=== PATIENT | male | born 2000 ===

== ENCOUNTER 2022-04-25 17:37 | Emergency (ER) | payer OTHER, SELFPAY ==
[2022-04-25 17:46] VITALS: BP 124/68; BP 127/64; PULSE 103; PULSE 90; RESP 18; TEMP 36.3; O2SAT 100; BMI 24.6
[2022-04-25 17:51] VITALS: BP 127/64; PULSE 90; RESP 18; TEMP 36.3; O2SAT 100
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
--- NOTE | 2022-04-25 19:14 | MHC.CARE ---
CARE team received consult, Luther declined recovery resources or detox services. He was restless and reports he needs to discharged to make it to bus station to get home as buses stop running at 8 PM. Pt to be discharged per RN.
== END 2022-04-25 19:22 | disposition home or self-care (01) ==
PROVIDERS: Emergency Provider Internal Medicine
DX: T40.1X1A Poisoning by heroin, accidental (unintentional), initial encounter (principal); R40.4 Transient alteration of awareness; Y92.511 Restaurant or cafe as the place of occurrence of the external cause; F17.200 Nicotine dependence, unspecified, uncomplicated
CPT/HCPCS: 99283; 99284

== ENCOUNTER 2022-05-20 20:20 | Inpatient (IN) | payer OTHER, SELFPAY ==
--- NOTE | 2022-05-20 22:18 | PC.NURSE ---
Pt was admitted on CV to M3 @2030 from [facility]. Signed CV. COVID-negative. History obtained from medical record as pt wanted to sleep. Per record, pt self presented to [facility] with increased depression and SI, thinking about jumping off a bridge; reckless behavior including burning self with cigarettes; medication nonadherence x mos. and increased substance use. ALLERGIES: NKA. Legal status: [place] No COVID ?Negative UTOX: VINH, FYL, THC Mood: Agitated; pt wanted to sleep and did not participate in assessment. Substance use: Polysubstance use, including cocaine, opiates, THC, alcohol.? MedHx: EKG sinus bradycardia. Cigarette mcnamara L hand; smoker; hx gerd; hx heart pain.? PsycheHx: F32.9 Unspecified depressive d-o. F11.20 Opioid use d-o, moderate. F79 Unspecified intellectual d-o. F14-20 Cocaine use d-o. VS at admission.? Goal: Pending
[2022-05-21 08:50] VITALS: BP 123/65; PULSE 64; RESP 18; TEMP 35.8; O2SAT 96
[2022-05-21 09:33] LABS: Alanine Aminotransferase 16 U/L (0-40); Albumin Level 4.3 g/dL (3.5-5.0); Alkaline Phosphatase 63 U/L (39-117); Anion Gap 13 (12-20); Aspartate Amino Transferase 18 U/L (5-37); Bilirubin Total 0.3 mg/dL (0.0-1.0); Blood Urea Nitrogen 11 mg/dL (9-16); Calcium 9.3 mg/dL (8.4-10.2); Carbon Dioxide 27 mmol/L (22-29); Chloride 104 mmol/L (96-108); Cholesterol 167 mg/dL; Estimated Glomerular Filt Rate > 60; Glucose Fasting 92 mg/dL (60-99); HDL Cholesterol 47 mg/dL; LDL Cholesterol Calculated 101 mg/dl; Potassium 4.5 mmol/L (3.3-5.1); Sodium 139 mmol/L (135-145); Triglycerides 98 mg/dL
[2022-05-21] MEDS: hydrOXYzine HCL 25 MG TABLET PO (12:38)
--- NOTE | 2022-05-21 12:43 | HO.PM.IMCN ---
History of Present Illness Data of Consult Service Date: 05/21/22 Requesting physician: Dallas Burgess Primary Care Provider: Nonstaff Physician HPI Reason for consult: medical H&P 21 year old male with history of depression with SI and polysubstance abuse including cocaine and IV heroin (last use 2 days ago) admitted to psychiatry with consult placed for medical H&P. He reports feeling quite aggitated with body aches. No fevers, chills, cp, palpitations, sob, abd pain, n/v, headaches. He smoked 1ppd cigarettes. Reports was previously on methadone months ago but started using again once this was discontinued. Looking to resume methadone. Review of Systems Review of Systems: General: No fevers, malaise, unintentional weight loss Cardiovascular: No chest pain, palpitations, or leg edema Respiratory: No shortness of breath, wheezing, cough GI: No abdominal pain, nausea, vomiting, diarrhea, constipation, melena, hematochezia Neuro: No headaches, weakness, paresthesias MSK: +myalgia Psych: +depression, +si, +polysubstance abuse, +aggitation Skin: No rashes or lesions PMFSH Medical History Cocaine abuse Depression Heroin abuse Pertinent family history: Pt aggitated from w/d, trying to leave exam room, not providing addl history Social History Household Members: None Housing: Homeless Alcohol intake: never Patient Tobacco Use Status: Current everyday Tobacco user Tobacco use type: Cigarette Smoked in Last 30 Days: Yes Frequency of e-Cigarette/Vaping Use: Medical record reports 1/2 to 1 pack a day cigarette smoker. Use of substances other than those prescribed or required for medical reasons: Yes Substance Use Type: Crack/Cocaine, Marijuana and Opiates Substance Use Frequency: Chronic Longstanding Last Used Substance: Days (ago) Last Used Substance Other:: VINH, FYL, THC Currently Displaying Signs/Symptoms of Drug Intoxication Withdrawal: No Any prior treatment program specific to substance use: Yes Do you feel safe in your current relationship?: No Current Relationship Advance Directives: No (Unknown) Do you have thoughts of harming others: None Do you have a plan to hurt others: No Plan Nutrition Risks: Dental problems Poor oral hygiene: Yes service: No Sexual orientation: Straight/Heterosexual Meds Allergies Allergy/AdvReac Type Severity Reaction Status Date / Time No Known Allergies Allergy Verified 05/20/22 20:54 Active Medications: Current Medications Acetaminophen (Acetaminophen 325 Mg Tablet) 650 mg PO Q6H PRN PRN Reason: Headache/Pain Mild Scale (1-3) Al Hydroxide/Mg Hydroxide (Magnesium Hydrox/Alum Hydrox 30 Ml Oral.Susp) 30 ml PO Q6H PRN PRN Reason: Heartburn/Nausea Hydroxyzine HCl (Hydroxyzine Hcl 25 Mg Tablet) 25 mg PO Q6H PRN PRN Reason: Anxiety Last Admin: 05/21/22 12:38 Dose: 25 mg Magnesium Hydroxide (Milk Of Magnesia 30 Ml Oral.Susp) 30 ml PO DAILY PRN PRN Reason: Constipation Trazodone HCl (Trazodone Hcl 50 Mg Tablet) 50 mg PO BEDTIME PRN PRN Reason: Insomnia Physical Exam Vital Signs and Narrative: Constitutional - Awake and Alert, Pacing in room, aggitated appearing Eyes - PERRLA, EOMI Cardiovascular - S1S2, RRR, No edema Respiratory - Normal lung expansion, Normal respiratory effort, No respiratory distress, CTA bilaterally Gastrointestinal - NT / ND; +BS; No rebound or guarding Extremities - no calf tenderness bilaterally, no swelling Skin - Warm/Dry Neurological - Alert & oriented x3, pupillary dilitation, CN II-XII otherwise intact Results Labs CBC and Chem 7: 05/21/22 08:09 Labs: Laboratory Results - last 24 hr 05/21/22 08:09 Anion Gap 13 Estim Creat Clear Calc TNP Estimated GFR > 60 Fasting Glucose 92 Calcium 9.3 Total Bilirubin 0.3 AST 18 ALT 16 Alkaline Phosphatase 63 Total Protein 7.0 Albumin 4.3 Triglycerides 98 Cholesterol 167 LDL Cholesterol, Calc 101 HDL Cholesterol 47 Assessment and Plan (1) Depression: Status: Acute (2) Heroin abuse: Status: Acute (3) Cocaine abuse: Status: Acute Plan 21 year old male with history of depression with SI and polysubstance abuse including cocaine and IV heroin (last use 2 days ago) admitted to psychiatry with consult placed for medical H&P. 1-Depression -Plan per psychiatry -Reviewed notes from [facility] ED including crisis eval and provider note. BMP, CBC, EKG reviewed without significant abnormality 2-Polysubstance abuse including cocaine and heroin in active withdrawal -UTox from [facility] pos cocaine and heroin 05/19 -Withdrawal symptoms including dilated pupils, myalgia, and aggitation -Monitor vitals -Recommend addiction medicine consult for possible methadone initiation -Plan per psychiatry Thank you for allowing me to participate in this consult. Signing off at this time. Please do not hesitate to call for further questions.
--- NOTE | 2022-05-21 13:15 | PC.NURSE ---
Late entry: 0900 Patient reporting symptom of withdrawal including: aching, chills. Denies n/v, reporting anxiety. Message relayed to team. Patient given hydroxyzine, Dr. Almonte notified of continued symptoms, patient requesting to start on Methadone ? Addictions consult.
[2022-05-21] MEDS: methADONE HCl 20 MG/2 ML ORAL.CONC 30 MG PO (14:05)
--- NOTE | 2022-05-21 16:17 | P.EN_ITS ---
Event Note Date of Service: 05/21/22 Event Note: Addiction consult This customs entry writer attempted to meet with patient. Patient laying in bed, eyes closed but responded sleeping! This customs entry writer advised patient regarding reason for visit, patient replied, thanks, yeah. come back tomorrow. I feel better now And rolled over
--- NOTE | 2022-05-21 16:17 | PM.EVENT ---
Event Note Date of Service: 05/21/22 Event Note: Addiction consult This sign writer letterer or painter attempted to meet with patient. Patient laying in bed, eyes closed but responded sleeping! This sign writer letterer or painter advised patient regarding reason for visit, patient replied, thanks, yeah. come back tomorrow. I feel better now And rolled over
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
--- NOTE | 2022-05-21 17:58 | PC.NURSE ---
Patient talking to peer loudly in common area. States he only said he was suicidal to get off the streets . Engaged in drug talk in milieu, he was trippin his fucking balls off . Using expletives, vulgarities. Redirected out of common area, minimally receptive stating I was not glamorizing drug talk .
[2022-05-21] MEDS: Nicotine Polacrilex 2 MG GUM 4 MG BUCCAL (19:19)
[2022-05-21] MEDS: Ibuprofen 800 MG TABLET PO (22:09)
[2022-05-21 22:10] VITALS: BP 137/63; PULSE 55; RESP 16; TEMP 36.8; O2SAT 98
[2022-05-21] MEDS: Acetaminophen 325 MG TABLET 650 MG PO (22:10)
[2022-05-22 08:20] VITALS: BP 127/58; PULSE 60; RESP 20; TEMP 36.6; O2SAT 97
[2022-05-22] MEDS: Nicotine Polacrilex 2 MG GUM 4 MG BUCCAL ×3 (10:50→22:07)
[2022-05-22] MEDS: methADONE HCl 20 MG/2 ML ORAL.CONC 30 MG PO (10:50)
--- NOTE | 2022-05-22 10:55 | PC.NURSE ---
Pt declined flu and nicotine patch.
--- NOTE | 2022-05-22 12:38 | HO.PSYCHPN ---
Subjective Subjective Date of Service: 05/22/22 Reason For Visit: Unspecified Depressive D/O, opiod use d/o moderate Interim History: calm, cooperative. appearing happier than yesterday. MD observes, you look better than yesterday, to which he replies, i'm always looking good (while looking at his reflection in the plexiglass TV cover). states he is not sure what his plan is. not really interested in rehab. ultimately says he is interested in referral to methadone clinic in [place]. planning to be maintained on 30 mg daily here and to D/C on wednesday to F/U at clinic on wednesday morning. per staff, 3-day submitted. watching TV, pleasant, social. no SI. Mental Status Exam Mental Status Exam Narrative: cooperative with interview. PMA of pacing about the interview room. adequately dressed and groomed in street clothes. speech nml rate and amount. nml loudness, latency. thoughts linear and logical. affect full range, normo-intense, non-labile. mood euthymic. no SI/HI/AVH expressed. Diagnostics Vital Signs (24Hr): Vital Signs - 24 hr 05/21/22 22:10 05/22/22 08:20 Temperature 98.2 F 97.9 F Pulse Rate 55 60 Respiratory Rate 16 20 Blood Pressure 137/63 127/58 L Pulse Oximetry 98 97 Oxygen Delivery Method Room Air Room Air Labs Results: 05/21/22 08:09 Labs: Laboratory Results - last 48 hr 05/21/22 08:09 Sodium 139 Potassium 4.5 Chloride 104 Carbon Dioxide 27 Anion Gap 13 BUN 11 Creatinine 0.83 Estim Creat Clear Calc TNP Estimated GFR > 60 Fasting Glucose 92 Calcium 9.3 Total Bilirubin 0.3 AST 18 ALT 16 Alkaline Phosphatase 63 Total Protein 7.0 Albumin 4.3 Triglycerides 98 Cholesterol 167 LDL Cholesterol, Calc 101 HDL Cholesterol 47 Medications Medications Current Medications Acetaminophen (Acetaminophen 325 Mg Tablet) 650 mg PO Q6H PRN PRN Reason: Headache/Pain Mild Scale (1-3) Last Admin: 05/21/22 22:10 Dose: 650 mg Al Hydroxide/Mg Hydroxide (Magnesium Hydrox/Alum Hydrox 30 Ml Oral.Susp) 30 ml PO Q6H PRN PRN Reason: Heartburn/Nausea Clonidine HCl (Clonidine Hcl 0.1 Mg Tablet) 0.1 mg PO Q2H PRN; Protocol PRN Reason: signs of opioid withdrawal Dicyclomine HCl (Dicyclomine Hcl 10 Mg Capsule) 10 mg PO QIDACHS PRN PRN Reason: GI Spasm Hydroxyzine HCl (Hydroxyzine Hcl 25 Mg Tablet) 25 mg PO Q6H PRN PRN Reason: Anxiety Last Admin: 05/21/22 12:38 Dose: 25 mg Ibuprofen (Ibuprofen 800 Mg Tablet) 800 mg PO Q6H PRN PRN Reason: Pain, Moderate (Pain Scale 4-6 Last Admin: 05/21/22 22:09 Dose: 800 mg Magnesium Hydroxide (Milk Of Magnesia 30 Ml Oral.Susp) 30 ml PO DAILY PRN PRN Reason: Constipation Methadone HCl (Methadone Hcl 20 Mg/2 Ml Oral.Conc) 30 mg PO DAILY TINA Nicotine Polacrilex (Nicotine Polacrilex 2 Mg Gum) 4 mg BUCCAL Q1H PRN PRN Reason: Nicotine Cravings Last Admin: 05/22/22 10:50 Dose: 4 mg Trazodone HCl (Trazodone Hcl 50 Mg Tablet) 50 mg PO BEDTIME PRN PRN Reason: Insomnia Allergies Allergies Allergy/AdvReac Type Severity Reaction Status Date / Time No Known Allergies Allergy Verified 05/20/22 20:54 Assessment & Plan Assessment & Plan (1) Depression: Status: Acute Code(s): F32.A - Depression, unspecified (2) Heroin abuse: Status: Acute Code(s): F11.10 - Opioid abuse, uncomplicated (3) Cocaine abuse: Status: Acute Code(s): F14.10 - Cocaine abuse, uncomplicated (4) Autism: Status: Acute Code(s): F84.0 - Autistic disorder (5) Malingering: Status: Acute Code(s): Z76.5 - Malingerer [conscious simulation] Plan 05/21: methadone 30 mg at admission and comfort meds for withdrawal Sx. addiction consult - pt states he would like to be on methadone maintenance. continue assessment once pt is more comfortable and better able to collaborate. 05/22: states he is not interested in rehab. everything's fine for the most part. he is interested in methadone maintenance and will be Rx'ed 30 mg daily for now. 3-day in, up next wednesday. plan to DC to snf in [place] to F/U at methadone clinic in [place] on . I spent ___20___ minutes with the patient and/or on the patient floor today, greater than?50% of which was spent counseling/coordinating care. Reason for contiued inpatient stay Substantial Risk for: rapid decompensation
--- NOTE | 2022-05-22 16:52 | HO.ADDICT_ITS ---
History of Present Illness Date of Service: 05/22/2022 Chief Complaint: Unspecified Depressive D/O, opiod use d/o moderate Reason for Consult: OUD--methadone start Requesting physician: [facility] Narrative: Patient is a 21 year old male currently admitted to behavioral health unit. Seen on unit, awake, alert and engaged in interview. Patient very talkative and at times rambling and requiring redirection to answer questions. Walking around room and looking into plexiglass. Somewhat juvenile presentation (manner of speaking, details of stories shared). Rpeorts he had been in a sober home for 6 months--prior to that had been in [address] [facility] for almost 2 months Came home to clear my head and had a recurrence of use with crack cocaine and shortly after that heroin. He expressed numerous times that he was not planning on relapsing when he came home. Substance use history \ -started using at age 16 --heroin [place] then at age 18 progressed to IV. -cocaine use as well -reports approx 4 overdoses requiring narcan. Has been in treatment with [facility]. Would liek to return there. States his dose was 40-50mg. Today patient received 30mg and did not appear sedated at all. Somewhat diaphoretic. Reporting restless legs in the evening. Requesting dose increase. Past Psychiatric History: reportedly h/o DMH and CHD services/involvement. multiple psych hosps. no h/o SA or SIB prior to the present presentation. Review of Systems Constitutional: Reports as per HPI Diagnostics Vital Signs (24Hr): Vital Signs - 24 hr 05/21/22 22:10 05/22/22 08:20 Temperature 98.2 F 97.9 F Pulse Rate 55 60 Respiratory Rate 16 20 Blood Pressure 137/63 127/58 L Pulse Oximetry 98 97 Oxygen Delivery Method Room Air Room Air Labs Results: 05/21/22 08:09 Labs: Laboratory Results - last 48 hr 05/21/22 08:09 Sodium 139 Potassium 4.5 Chloride 104 Carbon Dioxide 27 Anion Gap 13 BUN 11 Creatinine 0.83 Estim Creat Clear Calc TNP Estimated GFR > 60 Fasting Glucose 92 Calcium 9.3 Total Bilirubin 0.3 AST 18 ALT 16 Alkaline Phosphatase 63 Total Protein 7.0 Albumin 4.3 Triglycerides 98 Cholesterol 167 LDL Cholesterol, Calc 101 HDL Cholesterol 47 Mental Status Exam Mental Status Exam Patient Appearance: Appropriate (blanket wrapped around him ) Patient Orientation: Person, Place, Time and Situation Patient Behavior: Appropriate and Talkative Mood Description: Anxious Affect Description: Anxious Ability to Follow Directions: Good Speech Pattern: Clear, Excessive and Animated Thought Process: Rumination (friend that passed ) Thought Content: positive for [place] and positive for Tangential Judgement: Fair (limited insight) Medications Medications Current Medications Acetaminophen (Acetaminophen 325 Mg Tablet) 650 mg PO Q6H PRN PRN Reason: Headache/Pain Mild Scale (1-3) Last Admin: 05/21/22 22:10 Dose: 650 mg Al Hydroxide/Mg Hydroxide (Magnesium Hydrox/Alum Hydrox 30 Ml Oral.Susp) 30 ml PO Q6H PRN PRN Reason: Heartburn/Nausea Clonidine HCl (Clonidine Hcl 0.1 Mg Tablet) 0.1 mg PO Q2H PRN; Protocol PRN Reason: signs of opioid withdrawal Dicyclomine HCl (Dicyclomine Hcl 10 Mg Capsule) 10 mg PO QIDACHS PRN PRN Reason: GI Spasm Hydroxyzine HCl (Hydroxyzine Hcl 25 Mg Tablet) 25 mg PO Q6H PRN PRN Reason: Anxiety Last Admin: 05/21/22 12:38 Dose: 25 mg Ibuprofen (Ibuprofen 800 Mg Tablet) 800 mg PO Q6H PRN PRN Reason: Pain, Moderate (Pain Scale 4-6 Last Admin: 05/21/22 22:09 Dose: 800 mg Magnesium Hydroxide (Milk Of Magnesia 30 Ml Oral.Susp) 30 ml PO DAILY PRN PRN Reason: Constipation Methadone HCl (Methadone Hcl 20 Mg/2 Ml Oral.Conc) 40 mg PO DAILY [facility] Nicotine Polacrilex (Nicotine Polacrilex 2 Mg Gum) 4 mg BUCCAL Q1H PRN PRN Reason: Nicotine Cravings Last Admin: 05/22/22 10:50 Dose: 4 mg Trazodone HCl (Trazodone Hcl 50 Mg Tablet) 50 mg PO BEDTIME PRN PRN Reason: Insomnia Allergies Allergies Allergy/AdvReac Type Severity Reaction Status Date / Time No Known Allergies Allergy Verified 05/20/22 20:54 Assessment & Plan Assessment & Plan (1) Opioid use disorder: Status: Acute Code(s): F11.90 - Opioid use, unspecified, uncomplicated Assessment and Plan: * methadone 40mg daily (order changed) * if patient at any time appears sedated, hold dose and notify this television script writer * discussed with SW--will place referral to [facility] for continuation of care with OTP I spent __35____ minutes with the patient and/or on the patient floor today, greater than?50% of which was spent counseling/coordinating care. [facility] Past Medical History Medical History Cocaine abuse Depression Heroin abuse Social History Social History Household Members: None Housing: Homeless Alcohol intake: never Patient Tobacco Use Status: Current everyday Tobacco user Tobacco use type: Cigarette Smoked in Last 30 Days: Yes Frequency of e-Cigarette/Vaping Use: Medical record reports 1/2 to 1 pack a day cigarette smoker. Use of substances other than those prescribed or required for medical reasons: Yes Substance Use Type: Crack/Cocaine, Marijuana and Opiates Substance Use Frequency: Chronic Longstanding Last Used Substance: Days (ago) Last Used Substance Other:: VINH, FYL, THC Currently Displaying Signs/Symptoms of Drug Intoxication Withdrawal: No Any prior treatment program specific to substance use: Yes Do you feel safe in your current relationship?: No Current Relationship Advance Directives: No (Unknown) Do you have thoughts of harming others: None Do you have a plan to hurt others: No Plan Nutrition Risks: Dental problems Poor oral hygiene: Yes service: No Sexual orientation: Straight/Heterosexual
[2022-05-22 20:58] VITALS: BP 112/53; PULSE 59; RESP 14; TEMP 36.6; O2SAT 96
[2022-05-22] MEDS: cloNIDine HCL 0.1 MG TABLET PO (22:07)
[2022-05-22 22:08] VITALS: BP 125/58; PULSE 59; RESP 16
[2022-05-22] MEDS: Melatonin 3 MG TABLET 6 MG PO (22:59)
[2022-05-23 06:00] VITALS: BP 109/52; PULSE 59; RESP 16; TEMP 36.1; O2SAT 98
[2022-05-23] MEDS: methADONE HCl 20 MG/2 ML ORAL.CONC 40 MG PO (08:46)
--- NOTE | 2022-05-23 12:31 | HO.PSYCHPN ---
Subjective Subjective Date of Service: 05/23/22 Reason For Visit: Unspecified Depressive D/O, opiod use d/o moderate Interim History: pt irritable, bothered by rules on unit saying other units are better; complaining loudly. Denies SI, HI, AVH. Says he lied to get a bed since he was homeless. However, says he has depression; zoloft helped in past. Agrees to get back on. Mental Status Exam Mental Status Exam Patient Appearance: Appropriate (blanket wrapped around him ) Patient Orientation: Person, Place, Time and Situation Patient Behavior: Appropriate and Talkative Mood Description: Anxious Affect Description: Anxious Ability to Follow Directions: Fair Speech Pattern: Clear, Excessive and Animated Hallucinations: None Delusions: Not Present Thought Process: Rumination (friend that passed ) Thought Content: positive for [place], positive for Tangential, positive for Suicidal Ideation (none) and positive for Homicidal Ideation (none) Judgement: Fair (limited insight) Judgement and Insight: impaired Diagnostics Vital Signs (24Hr): Vital Signs - 24 hr 05/22/22 20:58 05/22/22 22:08 05/23/22 06:00 Temperature 97.8 F 97.0 F Pulse Rate 59 59 59 Respiratory Rate 14 16 16 Blood Pressure 112/53 L 125/58 L 109/52 L Pulse Oximetry 96 98 Oxygen Delivery Method Room Air Room Air Labs Results: 05/21/22 08:09 Medications Medications Current Medications Acetaminophen (Acetaminophen 325 Mg Tablet) 650 mg PO Q6H PRN PRN Reason: Headache/Pain Mild Scale (1-3) Last Admin: 05/21/22 22:10 Dose: 650 mg Al Hydroxide/Mg Hydroxide (Magnesium Hydrox/Alum Hydrox 30 Ml Oral.Susp) 30 ml PO Q6H PRN PRN Reason: Heartburn/Nausea Clonidine HCl (Clonidine Hcl 0.1 Mg Tablet) 0.1 mg PO Q2H PRN; Protocol PRN Reason: signs of opioid withdrawal Last Admin: 05/22/22 22:07 Dose: 0.1 mg Dicyclomine HCl (Dicyclomine Hcl 10 Mg Capsule) 10 mg PO QIDACHS PRN PRN Reason: GI Spasm Hydroxyzine HCl (Hydroxyzine Hcl 25 Mg Tablet) 25 mg PO Q6H PRN PRN Reason: Anxiety Last Admin: 05/21/22 12:38 Dose: 25 mg Ibuprofen (Ibuprofen 800 Mg Tablet) 800 mg PO Q6H PRN PRN Reason: Pain, Moderate (Pain Scale 4-6 Last Admin: 05/21/22 22:09 Dose: 800 mg Magnesium Hydroxide (Milk Of Magnesia 30 Ml Oral.Susp) 30 ml PO DAILY PRN PRN Reason: Constipation Melatonin (Melatonin 3 Mg Tablet) 6 mg PO BEDTIME PRN PRN Reason: Insomnia Last Admin: 05/22/22 22:59 Dose: 6 mg Methadone HCl (Methadone Hcl 20 Mg/2 Ml Oral.Conc) 40 mg PO DAILY TINA Last Admin: 05/23/22 08:46 Dose: 40 mg Nicotine Polacrilex (Nicotine Polacrilex 2 Mg Gum) 4 mg BUCCAL Q1H PRN PRN Reason: Nicotine Cravings Last Admin: 05/22/22 22:07 Dose: 4 mg Trazodone HCl (Trazodone Hcl 50 Mg Tablet) 50 mg PO BEDTIME PRN PRN Reason: Insomnia Allergies Allergies Allergy/AdvReac Type Severity Reaction Status Date / Time No Known Allergies Allergy Verified 05/20/22 20:54 Assessment & Plan Assessment & Plan (1) Opioid use disorder: Status: Acute Code(s): F11.90 - Opioid use, unspecified, uncomplicated Assessment and Plan: methadone 40mg daily (order changed) if patient at any time appears sedated, hold dose and notify this law writer discussed with SW--will place referral to [facility] for continuation of care with OTP 05/23 denies SI; says depressed; Zoloft helped in past and will restart now Plan 05/23 denies SI; says depressed; Zoloft helped in past and will restart now I spent minutes with the patient and/or on the patient floor today, greater than?50% of which was spent counseling/coordinating care. Patient educated on: diagnosis and medication risk/benefits Informed Consent: understands and further education needed Reason for contiued inpatient stay Substantial Risk for: stable for discharge
[2022-05-23] MEDS: Nicotine Polacrilex 2 MG GUM 4 MG BUCCAL ×2 (14:24→22:50)
[2022-05-23 20:30] VITALS: BP 140/63; PULSE 62; RESP 16; TEMP 36.3; O2SAT 96
[2022-05-23 22:45] VITALS: BP 125/60; PULSE 58; RESP 16
[2022-05-23] MEDS: cloNIDine HCL 0.1 MG TABLET PO (22:50)
[2022-05-23] MEDS: Melatonin 3 MG TABLET 6 MG PO (22:50)
[2022-05-24 09:10] VITALS: BP 132/56; PULSE 59; RESP 18; TEMP 36.5; O2SAT 100
[2022-05-24] MEDS: Sertraline HCL 50 MG TABLET PO (09:19)
[2022-05-24] MEDS: methADONE HCl 20 MG/2 ML ORAL.CONC 40 MG PO (09:19)
[2022-05-24 18:25] VITALS: BP 118/59; PULSE 51; RESP 16; TEMP 36.4; O2SAT 97
[2022-05-24] MEDS: Nicotine Polacrilex 2 MG GUM 4 MG BUCCAL (19:32)
--- NOTE | 2022-05-24 19:34 | HO.PSYCHPN ---
Subjective Subjective Date of Service: 05/24/22 Reason For Visit: Unspecified Depressive D/O, opiod use d/o moderate Interim History: Patient said that he is feeling a little more calm. He said his depression is not so bad today and listed some of the things he is doing to distract himself from worries about his problems. He said he had no side effects from Zoloft and agrees for to be titrated. Denies SI or HI. He did share with staff that he has been mourning the of a friend. Mental Status Exam Mental Status Exam Patient Appearance: Appropriate (blanket wrapped around him ) Patient Orientation: Person, Place, Time and Situation Patient Behavior: Appropriate and Talkative Mood Description: Anxious Affect Description: Anxious Ability to Follow Directions: Fair Speech Pattern: Clear, Excessive and Animated Hallucinations: None Delusions: Not Present Thought Process: Rumination (friend that passed ) Thought Content: positive for [place], positive for Tangential, positive for Suicidal Ideation (none) and positive for Homicidal Ideation (none) Judgement: Fair (limited insight) Judgement and Insight: impaired Diagnostics Vital Signs (24Hr): Vital Signs - 24 hr 05/23/22 20:30 05/23/22 22:45 05/24/22 09:10 Temperature 97.4 F 97.7 F Pulse Rate 62 58 59 Respiratory Rate 16 16 18 Blood Pressure 140/63 H 125/60 132/56 L Pulse Oximetry 96 100 Oxygen Delivery Method Room Air Room Air 05/24/22 18:25 Temperature 97.6 F Pulse Rate 51 Respiratory Rate 16 Blood Pressure 118/59 L Pulse Oximetry 97 Oxygen Delivery Method Room Air Labs Results: 05/21/22 08:09 Medications Medications Current Medications Acetaminophen (Acetaminophen 325 Mg Tablet) 650 mg PO Q6H PRN PRN Reason: Headache/Pain Mild Scale (1-3) Last Admin: 05/21/22 22:10 Dose: 650 mg Al Hydroxide/Mg Hydroxide (Magnesium Hydrox/Alum Hydrox 30 Ml Oral.Susp) 30 ml PO Q6H PRN PRN Reason: Heartburn/Nausea Clonidine HCl (Clonidine Hcl 0.1 Mg Tablet) 0.1 mg PO Q2H PRN; Protocol PRN Reason: signs of opioid withdrawal Last Admin: 05/23/22 22:50 Dose: 0.1 mg Dicyclomine HCl (Dicyclomine Hcl 10 Mg Capsule) 10 mg PO QIDACHS PRN PRN Reason: GI Spasm Hydroxyzine HCl (Hydroxyzine Hcl 25 Mg Tablet) 25 mg PO Q6H PRN PRN Reason: Anxiety Last Admin: 05/21/22 12:38 Dose: 25 mg Ibuprofen (Ibuprofen 800 Mg Tablet) 800 mg PO Q6H PRN PRN Reason: Pain, Moderate (Pain Scale 4-6 Last Admin: 05/21/22 22:09 Dose: 800 mg Magnesium Hydroxide (Milk Of Magnesia 30 Ml Oral.Susp) 30 ml PO DAILY PRN PRN Reason: Constipation Melatonin (Melatonin 3 Mg Tablet) 6 mg PO BEDTIME PRN PRN Reason: Insomnia Last Admin: 05/23/22 22:50 Dose: 6 mg Methadone HCl (Methadone Hcl 20 Mg/2 Ml Oral.Conc) 40 mg PO DAILY [facility] Last Admin: 05/24/22 09:19 Dose: 40 mg Nicotine Polacrilex (Nicotine Polacrilex 2 Mg Gum) 4 mg BUCCAL Q1H PRN PRN Reason: Nicotine Cravings Last Admin: 05/24/22 19:32 Dose: 4 mg Sertraline HCl (Sertraline Hcl 50 Mg Tablet) 50 mg PO DAILY [facility] Last Admin: 05/24/22 09:19 Dose: 50 mg Trazodone HCl (Trazodone Hcl 50 Mg Tablet) 50 mg PO BEDTIME PRN PRN Reason: Insomnia Allergies Allergies Allergy/AdvReac Type Severity Reaction Status Date / Time No Known Allergies Allergy Verified 05/20/22 20:54 Assessment & Plan Assessment & Plan (1) Opioid use disorder: Status: Acute Code(s): F11.90 - Opioid use, unspecified, uncomplicated Assessment and Plan: methadone 40mg daily (order changed) if patient at any time appears sedated, hold dose and notify this curriculum writer discussed with SW--will place referral to [facility] for continuation of care with OTP 05/23 denies SI; says depressed; Zoloft helped in past and will restart now Plan 05/23 denies SI; says depressed; Zoloft helped in past and will restart now 05/24 patient said he is feeling a little better, a little less depressed. Still anxious about dispo however says he has been using coping skills Patient agrees to increasing Zoloft Patient looks to have symptoms similar to ADHD and curriculum writer wonders if patient would benefit from a stimulant medication; however will defer this to primary team I spent minutes with the patient and/or on the patient floor today, greater than?50% of which was spent counseling/coordinating care. Patient educated on: diagnosis, medication risk/benefits and therapeutic strategies Informed Consent: understands Reason for contiued inpatient stay Substantial Risk for: stable for discharge
[2022-05-24] MEDS: cloNIDine HCL 0.1 MG TABLET PO (22:39)
[2022-05-24] MEDS: Melatonin 3 MG TABLET 6 MG PO (22:39)
[2022-05-25 10:35] VITALS: BP 117/70; PULSE 88; RESP 16; TEMP 37.1; O2SAT 98
[2022-05-25] MEDS: methADONE HCl 20 MG/2 ML ORAL.CONC 40 MG PO (10:40)
[2022-05-25] MEDS: Sertraline HCL 25 MG TABLET 75 MG PO (10:41)
--- NOTE | 2022-05-25 10:45 | PC.NURSE ---
ll nursing documentation inthis chart from 05/25/2022 0800am through 10:30 am was completed by Hannah Garcia RN. I was loggied in in error as Sri Saldivar RN.
[2022-05-25] MEDS: Nicotine Polacrilex 2 MG GUM 4 MG BUCCAL (15:08)
--- NOTE | 2022-05-25 15:14 | P.PNPSI_ITS ---
Subjective Subjective Date of Service: 05/25/22 Reason For Visit: Unspecified Depressive D/O, opiod use d/o moderate Interim History: Patient says he is feeling more calm and staff concurs; says maybe Zoloft is starting to work but he knows it takes awhile. Denies psychiatric symptoms Mental Status Exam Mental Status Exam Patient Appearance: Appropriate (blanket wrapped around him ) Patient Orientation: Person, Place, Time and Situation Patient Behavior: Appropriate and Talkative Mood Description: Anxious Affect Description: Anxious Ability to Follow Directions: Fair Speech Pattern: Clear, Excessive and Animated Hallucinations: None Delusions: Not Present Thought Process: Rumination (friend that passed ) Thought Content: positive for [place], positive for Tangential, positive for Suicidal Ideation (none) and positive for Homicidal Ideation (none) Judgement: Fair (limited insight) Judgement and Insight: impaired Diagnostics Vital Signs (24Hr): Vital Signs - 24 hr 05/24/22 18:25 05/25/22 10:35 Temperature 97.6 F 98.7 F Pulse Rate 51 88 Respiratory Rate 16 16 Blood Pressure 118/59 L 117/70 Pulse Oximetry 97 98 Oxygen Delivery Method Room Air Room Air Labs Results: 05/21/22 08:09 Medications Medications Current Medications Acetaminophen (Acetaminophen 325 Mg Tablet) 650 mg PO Q6H PRN PRN Reason: Headache/Pain Mild Scale (1-3) Last Admin: 05/21/22 22:10 Dose: 650 mg Al Hydroxide/Mg Hydroxide (Magnesium Hydrox/Alum Hydrox 30 Ml Oral.Susp) 30 ml PO Q6H PRN PRN Reason: Heartburn/Nausea Clonidine HCl (Clonidine Hcl 0.1 Mg Tablet) 0.1 mg PO Q2H PRN; Protocol PRN Reason: signs of opioid withdrawal Last Admin: 05/24/22 22:39 Dose: 0.1 mg Dicyclomine HCl (Dicyclomine Hcl 10 Mg Capsule) 10 mg PO QIDACHS PRN PRN Reason: GI Spasm Hydroxyzine HCl (Hydroxyzine Hcl 25 Mg Tablet) 25 mg PO Q6H PRN PRN Reason: Anxiety Last Admin: 05/21/22 12:38 Dose: 25 mg Ibuprofen (Ibuprofen 800 Mg Tablet) 800 mg PO Q6H PRN PRN Reason: Pain, Moderate (Pain Scale 4-6 Last Admin: 05/21/22 22:09 Dose: 800 mg Magnesium Hydroxide (Milk Of Magnesia 30 Ml Oral.Susp) 30 ml PO DAILY PRN PRN Reason: Constipation Melatonin (Melatonin 3 Mg Tablet) 6 mg PO BEDTIME PRN PRN Reason: Insomnia Last Admin: 05/24/22 22:39 Dose: 6 mg Methadone HCl (Methadone Hcl 20 Mg/2 Ml Oral.Conc) 40 mg PO DAILY [facility] Last Admin: 05/25/22 10:40 Dose: 40 mg Nicotine Polacrilex (Nicotine Polacrilex 2 Mg Gum) 4 mg BUCCAL Q1H PRN PRN Reason: Nicotine Cravings Last Admin: 05/25/22 15:08 Dose: 4 mg Sertraline HCl (Sertraline Hcl 25 Mg Tablet) 75 mg PO DAILY [facility] Last Admin: 05/25/22 10:41 Dose: 75 mg Trazodone HCl (Trazodone Hcl 50 Mg Tablet) 50 mg PO BEDTIME PRN PRN Reason: Insomnia Allergies Allergies Allergy/AdvReac Type Severity Reaction Status Date / Time No Known Allergies Allergy Verified 05/20/22 20:54 Assessment & Plan Assessment & Plan (1) Opioid use disorder: Status: Acute Code(s): F11.90 - Opioid use, unspecified, uncomplicated Assessment and Plan: * methadone 40mg daily (order changed) * if patient at any time appears sedated, hold dose and notify this conventional mortgage underwriter * discussed with SW--will place referral to [facility] for continuation of care with OTP * 05/23 denies SI; says depressed; Zoloft helped in past and will restart now Plan 05/23 denies SI; says depressed; Zoloft helped in past and will restart now 05/24 patient said he is feeling a little better, a little less depressed. Still anxious about dispo however says he has been using coping skills Patient agrees to increasing Zoloft Patient looks to have symptoms similar to ADHD and conventional mortgage underwriter wonders if patient would benefit from a stimulant medication; however will defer this to primary team 05/25 continue Zoloft; patient has calmed somewhat I spent minutes with the patient and/or on the patient floor today, greater than?50% of which was spent counseling/coordinating care. Patient educated on: diagnosis and medication risk/benefits Reason for contiued inpatient stay Substantial Risk for: stable for discharge
[2022-05-25] MEDS: Melatonin 3 MG TABLET 6 MG PO (22:45)
[2022-05-25] MEDS: cloNIDine HCL 0.1 MG TABLET PO (22:46)
[2022-05-25 22:48] VITALS: BP 123/58; PULSE 62; RESP 18; TEMP 36.3; O2SAT 98
[2022-05-26 09:00] VITALS: BP 120/55; PULSE 66; RESP 16; TEMP 37.1; O2SAT 96
[2022-05-26] MEDS: Sertraline HCL 25 MG TABLET 75 MG PO (09:08)
[2022-05-26] MEDS: methADONE HCl 20 MG/2 ML ORAL.CONC 40 MG PO (09:08)
--- NOTE | 2022-05-26 14:49 | MHC.RECOVRN ---
T/W met w/ pt, pt alert, oriented, watching t.v. Pt states feels fine on 40mg MTD pt reports no withdrawal symptoms at this time. Provider aware.
--- NOTE | 2022-05-26 16:28 | HO.PSYCHPN ---
Subjective Subjective Date of Service: 05/26/22 Reason For Visit: Unspecified Depressive D/O, opiod use d/o moderate Interim History: renae, uninterested, disengaged. seems little concerned with where he might sleep after he discharges. wants to go tomorrow, when 3-day notice matures. methadone 40 mg feels good to him, mood is good, no SI/SIBI. per staff, 3-day up tomorrow. not attending groups.asking for D/C today. in good control yesterday. med-compliant. Mental Status Exam Mental Status Exam Narrative: cooperative with interview. PMA of pacing about the interview room. adequately dressed and groomed in street clothes. speech nml rate and amount. nml loudness, latency. thoughts linear and logical. affect full range, normo-intense, non-labile. mood good. no SI/SIBI. no HI/AVH expressed. Diagnostics Vital Signs (24Hr): Vital Signs - 24 hr 05/25/22 22:48 05/26/22 09:00 Temperature 97.3 F 98.8 F Pulse Rate 62 66 Respiratory Rate 18 16 Blood Pressure 123/58 L 120/55 L Pulse Oximetry 98 96 Oxygen Delivery Method Room Air Room Air Labs Results: 05/21/22 08:09 Medications Medications Current Medications Acetaminophen (Acetaminophen 325 Mg Tablet) 650 mg PO Q6H PRN PRN Reason: Headache/Pain Mild Scale (1-3) Last Admin: 05/21/22 22:10 Dose: 650 mg Al Hydroxide/Mg Hydroxide (Magnesium Hydrox/Alum Hydrox 30 Ml Oral.Susp) 30 ml PO Q6H PRN PRN Reason: Heartburn/Nausea Clonidine HCl (Clonidine Hcl 0.1 Mg Tablet) 0.1 mg PO Q2H PRN; Protocol PRN Reason: signs of opioid withdrawal Last Admin: 05/25/22 22:46 Dose: 0.1 mg Dicyclomine HCl (Dicyclomine Hcl 10 Mg Capsule) 10 mg PO QIDACHS PRN PRN Reason: GI Spasm Hydroxyzine HCl (Hydroxyzine Hcl 25 Mg Tablet) 25 mg PO Q6H PRN PRN Reason: Anxiety Last Admin: 05/21/22 12:38 Dose: 25 mg Ibuprofen (Ibuprofen 800 Mg Tablet) 800 mg PO Q6H PRN PRN Reason: Pain, Moderate (Pain Scale 4-6 Last Admin: 05/21/22 22:09 Dose: 800 mg Magnesium Hydroxide (Milk Of Magnesia 30 Ml Oral.Susp) 30 ml PO DAILY PRN PRN Reason: Constipation Melatonin (Melatonin 3 Mg Tablet) 6 mg PO BEDTIME PRN PRN Reason: Insomnia Last Admin: 05/25/22 22:45 Dose: 6 mg Methadone HCl (Methadone Hcl 20 Mg/2 Ml Oral.Conc) 40 mg PO DAILY [facility] Last Admin: 05/26/22 09:08 Dose: 40 mg Nicotine Polacrilex (Nicotine Polacrilex 2 Mg Gum) 4 mg BUCCAL Q1H PRN PRN Reason: Nicotine Cravings Last Admin: 05/25/22 15:08 Dose: 4 mg Sertraline HCl (Sertraline Hcl 25 Mg Tablet) 75 mg PO DAILY [facility] Last Admin: 05/26/22 09:08 Dose: 75 mg Trazodone HCl (Trazodone Hcl 50 Mg Tablet) 50 mg PO BEDTIME PRN PRN Reason: Insomnia Allergies Allergies Allergy/AdvReac Type Severity Reaction Status Date / Time No Known Allergies Allergy Verified 05/20/22 20:54 Assessment & Plan Assessment & Plan (1) Opioid use disorder: Status: Acute Code(s): F11.90 - Opioid use, unspecified, uncomplicated Assessment and Plan: methadone 40mg daily (order changed) if patient at any time appears sedated, hold dose and notify this automobile service writer discussed with SW--will place referral to [facility] for continuation of care with OTP 05/23 denies SI; says depressed; Zoloft helped in past and will restart now Plan 05/23 denies SI; says depressed; Zoloft helped in past and will restart now 05/24 patient said he is feeling a little better, a little less depressed. Still anxious about dispo however says he has been using coping skills Patient agrees to increasing Zoloft Patient looks to have symptoms similar to ADHD and automobile service writer wonders if patient would benefit from a stimulant medication; however will defer this to primary team 05/25 continue Zoloft; patient has calmed somewhat 05/26: continue current mgmt, discharge tomorrow on maturation of 3-day notice. aftercare to be arranged in [place]. I spent __20____ minutes with the patient and/or on the patient floor today, greater than?50% of which was spent counseling/coordinating care. Reason for contiued inpatient stay Substantial Risk for: inability to function and rapid decompensation
[2022-05-26] MEDS: Nicotine Polacrilex 2 MG GUM 4 MG BUCCAL ×2 (17:58→20:59)
[2022-05-26 20:50] VITALS: BP 114/56; PULSE 56; RESP 16; TEMP 36.6; O2SAT 98
[2022-05-26] MEDS: Melatonin 3 MG TABLET 6 MG PO (20:59)
[2022-05-26] MEDS: cloNIDine HCL 0.1 MG TABLET PO (20:59)
[2022-05-27 08:42] VITALS: BP 115/55; PULSE 54; RESP 16; TEMP 36.6; O2SAT 16
[2022-05-27] MEDS: methADONE HCl 20 MG/2 ML ORAL.CONC 40 MG PO (08:43)
[2022-05-27] MEDS: Sertraline HCL 25 MG TABLET 75 MG PO (08:47)
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
[2022-05-27 13:14] LABS: COVID-19 Test Negative (Negative); IDNOW Serial# 16C4AD1C
== END 2022-05-27 14:23 | DRG 754 ==
PROVIDERS: Psychiatry & Neurology Psychiatry; Admitting Provider Psychiatry & Neurology Psychiatry; Visit Provider Psychiatry & Neurology Psychiatry
DX: F32.A Depression, unspecified (principal); F11.20 Opioid dependence, uncomplicated; F14.10 Cocaine abuse, uncomplicated; F17.210 Nicotine dependence, cigarettes, uncomplicated; F84.0 Autistic disorder; Z76.5 Malingerer [conscious simulation]; Z20.822 Contact with and (suspected) exposure to COVID-19; Z71.6 Tobacco abuse counseling; Z59.02 Unsheltered homelessness; Z79.899 Other long term (current) drug therapy
CPT/HCPCS: 36415; 80053; 80061; 87635

== ENCOUNTER 2022-09-30 23:35 | Inpatient (IN) | payer OTHER, SELFPAY ==
--- NOTE | ~2022-09-30 | CT_ITS ---
EXAMINATION: CT CHEST WITHOUT CONTRAST CLINICAL INFORMATION: IV drug use. Short of breath. Fever. COMPARISON: Radiograph from today TECHNIQUE: Multidetector volumetric CT imaging of the chest was done. Axial MIP volume rendering provided. Sagittal and coronal reformatted images were obtained. This CT examination was performed using dose optimization techniques as appropriate, variously including the following: *Automated exposure control *Adjustment of mA and/or kV according to patient size (this includes techniques or standardized protocols for targeted exams where dose is matched to indication/reason for exam; i.e. extremities or head) *Use of iterative reconstruction technique DLP: 253 mGy-cm FINDINGS: SENIOR HR MANAGER: Opacity at the left base. LUNGS: The central airways are patent. Left lower lobe consolidation with air bronchograms. Additional areas of consolidation in the lingula and right middle lobe. Minimal patchy right peripheral basilar opacity with tree-in-bud nodular opacities noted. No cavitating lesions. No pneumothorax. MEDIASTINUM: Normal heart size. No pericardial effusion. No mediastinal lymphadenopathy. Soft tissue density in the anterior mediastinum likely representing residual thymic tissue. CORONARY ARTERY CALCIFICATION: None visualized on this study. PLEURA: There is no pleural effusion. No pleural mass or thickening. AXILLA: No lymphadenopathy. UPPER ABDOMEN: Unremarkable. OSSEOUS STRUCTURES: Unremarkable. CT/CT chest wo IV con IMPRESSION: Left lower lobe consolidation with air bronchograms. Additional areas of consolidation in the lingula, right middle lobe, and right lower lobe. This is concerning for multifocal pneumonia. Fleischner guidelines were followed.
--- NOTE | ~2022-09-30 | XR_ITS ---
EXAMINATION: XR CHEST CLINICAL INFORMATION: Chest pain COMPARISON: None TECHNIQUE: 2 views of the chest were obtained. FINDINGS: The lungs are well expanded. Left lower lobe consolidation. No pleural effusion or pneumothorax. The cardiomediastinal silhouette is within normal limits. XR/XR chest 2V IMPRESSION: Left lower lobe pneumonia.
[2022-09-30 23:42] VITALS: BP 112/56; BP 118/80; PULSE 88; PULSE 90; RESP 14; TEMP 36.7; O2SAT 92; O2SAT 96; BMI 23.5
--- NOTE | 2022-09-30 23:53 | ECG_ITS ---
Test Reason : chest pain Blood Pressure : / mmHG Vent. Rate : 096 BPM Atrial Rate : 096 BPM P-R Int : 146 ms QRS Dur : 084 ms QT Int : 322 ms P-R-T Axes : 000 146 146 degrees QTc Int : 406 ms Limb leads reversal Normal sinus rhythm Right axis deviation Nonspecific ST and T wave abnormality Abnormal ECG No previous ECGs available Referred By: Generic ED Physician Electronically Signed By:Charles Mathews
--- NOTE | 2022-09-30 23:56 | PC.NURSE ---
this rn assumed care of pt @ 1920. pt changed over and belongings secured by security. ed provider at bedside. ekg obtained by civil preparedness officer at this time
[2022-10-01] VITALS (19 sets, daily range): BP systolic 90–117; BP diastolic 33–73; PULSE 58–105; RESP 16–31; TEMP 36.2–38.1; O2SAT 92–99; BMI 23.5
--- NOTE | 2022-10-01 00:08 | PC.NURSE ---
per mayi han pt okay to remove O2 placed by ems. rr 16 nonlabored at this time spo2 97%
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
[2022-10-01 00:25] LABS: Basophils Absolute Auto 0.1 X10*3/uL (0.0-0.2); Basophils Percent Auto 0.3 % (0-2); Hematocrit 38.4 % (42.0-52.0); Hemoglobin 13.4 g/dl (14.0-18.0); Imm Gran Abs Auto 0.09 X10*3/uL (0.00-0.03); Imm Gran Pct Auto 0.5 % (0.0-0.4); Lymphocytes Percent Auto 5.3 % (20-40); MANUAL DIFF FLAG SCAN; Mean Corpuscular HGB Conc 34.9 g/dl (31.0-36.0); Mean Corpuscular Hemoglobin 31.5 pg (27.0-33.0); Mean Corpuscular Volume 90.4 fL (80.0-98.0); Mean Platelet Volume 10.2 fL (9.4-12.4); Monocytes Absolute Auto 1.5 X10*3/uL (0.1-1.2); Monocytes Percent Auto 7.9 % (2-11); Neutrophils Absolute Auto 16.5 x10*3/uL (2.0-8.3); Platelet Count 372 X10*3/uL (160-400); Red Blood Count 4.25 X10*6/uL (4.60-5.80); Red Cell Distribution Width 12.9 % (11.0-16.0); SCAN SMEAR FLAG 1; White Blood Count 19.1 X10*3/uL (4.8-10.8)
[2022-10-01 00:30] LABS: INTERNATIONAL NORM RATIO 1.4 (0.9-1.1); Prothrombin Time 16.2 SEC (10.0-13.1)
[2022-10-01 00:33] LABS: Partial Thromboplastin Time 34.9 SEC (26.0-36.4)
[2022-10-01 00:38] LABS: COVID-19 Test Negative (Negative); IDNOW Serial# 6674DD1D
--- NOTE | 2022-10-01 00:40 | PC.NURSE ---
blood work obtained and sent down to lab. 1:[address]
[2022-10-01 00:46] LABS: Acetaminophen LAB < 17 mcg/mL (<30); Alanine Aminotransferase 21 U/L (0-40); Albumin Level 4.4 g/dL (3.5-5.0); Alkaline Phosphatase 68 U/L (39-117); Anion Gap 19 (12-20); Aspartate Amino Transferase 44 U/L (5-37); Bilirubin Total 0.6 mg/dL (0.0-1.0); Blood Urea Nitrogen 26 mg/dL (9-16); Carbon Dioxide 24 mmol/L (22-29); Chloride 100 mmol/L (96-108); Creatinine Clr Calc Pharmacy 110.1; Estimated Glomerular Filt Rate 59; Ethanol < 10 mg/dL; Glucose Random 107 mg/dL (60-115); Magnesium 2.2 mg/dL (1.6-2.6); Phosphorus 3.9 mg/dL (2.7-4.5); Potassium 4.9 mmol/L (3.3-5.1); Salicylate < 5.0 mg/dL (15-30); Sodium 138 mmol/L (135-145); Total Protein 7.2 g/dL (6.5-8.0)
[2022-10-01 00:51] LABS: Troponin-I High Sensitivity 110.8 ng/L (<3.5-35.0)
[2022-10-01] MEDS: Aspirin 81 MG TAB.CHEW 324 MG PO (01:06)
--- NOTE | 2022-10-01 01:10 | PC.NURSE ---
pt moved into ed 21. pt placed on environmental monitoring specialist at this time. blood work obtained and sent down to lab. iv placed 20 R AC. pt medicated according to oct. 1:[address]
--- NOTE | 2022-10-01 01:11 | PC.NURSE ---
pt placed back on 2 LPM NC spo2 88%. 93-96% on 2 LPM NC
[2022-10-01 01:15] LABS: Lactic Acid 1.6 mmol/L (0.5-2.0)
[2022-10-01] MEDS: Piperacillin Sodium/Tazobactam 3.375 GM in 0.9 % Sodium Chloride 50 ML IV (01:16)
[2022-10-01 01:28] LABS: SLIDE REVIEW VERIFIED
[2022-10-01] MEDS: 0.9 % Sodium Chloride 2,041.17 ML 2041.17 ML IV (02:07)
--- NOTE | 2022-10-01 02:08 | PC.NURSE ---
low BP and map reported to mayi han and hospitalist dr russell @ [id number]. sepsis packet started at this time. initial liter of fluids held as md put in order for total fluids 30ml/kg. iv fluids placed in pressure bags for administration
--- NOTE | 2022-10-01 02:21 | PC.NURSE ---
This RN notified by Amelia RN @ 0210 that per PATRICK Navarrete, plan for sepsis workup due to hypotension. nuclear radiologist and Tong Setter not notified of intent to begin sepsis protocol by PATRICK. Sepsis fluids ordered, IV ABX already ordered previously @ 0102. Sepsis fluids infusing per MAR. Plan to continue to monitor.
--- NOTE | 2022-10-01 02:22 | PC.NURSE ---
iv push ativan not given due to low BP. dr russell made aware of bp and ordered this rn to hold medication
[2022-10-01] MEDS: Enoxaparin Sodium 40 MG/0.4 ML SYRINGE SUBCUT (03:00)
[2022-10-01] MEDS: Acetaminophen 325 MG TABLET 650 MG PO ×2 (03:16→15:10)
--- NOTE | 2022-10-01 03:17 | PC.NURSE ---
COLLISION ESTIMATOR REPORTED TO THIS RN ORAL TEMP 100.6 THIS RN REPORTED TO DR ALVAREZ. PER DR ALVAREZ PT GIVEN PO TYLENOL. PT MEDICATED ACCORDING TO MICHAEL
[2022-10-01 03:22] LABS: Amphetamine Screen Urine Not Detected (Not Detect); Barbiturates, Urine Not Detected (Not Detect); Benzodiazepines Screen Urine Not Detected (Not Detect); Cannabinoid Screen Urine POSITIVE (Not Detect); Cocaine Screen Urine POSITIVE (Not Detect); Fentanyl, urine POSITIVE (Not Detect); Opiate Screen Urine POSITIVE (Not Detect); Phencyclidine Screen Urine Not Detected (Not Detect)
[2022-10-01 03:26] LABS: Troponin-I High Sensitivity 71.3 ng/L (<3.5-35.0)
--- NOTE | 2022-10-01 03:43 | PC.NURSE ---
2nd bp after fluid completion BP 105/[address] russell made aware. awaiting new orders at this time
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
[2022-10-01] MEDS: 0.9 % Sodium Chloride 1,000 ML 999 ML IV (03:52)
--- NOTE | 2022-10-01 04:12 | PC.NURSE ---
pt reports itching on neck and shoulders. denies SOB. this rn made dr russell aware. medicated pt according to mar
[2022-10-01] MEDS: diphenhydrAMINE HCL 50 MG/ML VIAL IVPUSH (04:13)
--- NOTE | 2022-10-01 05:19 | PC.NURSE ---
bp 95/[address] russell made aware of low bp and map. per dr russell systolic is maintaining above 90 that is okay. per no new orders at this time. dr russell called this rn requested to monitor VS q15 minutes three times with systolic above 90 then monitor vs q4hr
[2022-10-01] MEDS: cefTRIAXone sodium 1 GM in 0.9 % Sodium Chloride 50 ML IV (05:51)
--- NOTE | 2022-10-01 06:08 | PC.NURSE ---
q[address] russell. per dr russell no new orders at this time. will recheck vs in 1hr 0655 then again in 4 hours from then. pt resting on stretcher at this time
--- NOTE | 2022-10-01 06:12 | PC.NURSE ---
this rn clarified with security on whereabouts of pt belongings. per security pt belongings placed in decon at this time
--- NOTE | 2022-10-01 06:59 | PC.NURSE ---
assumed care of patient, pt resting comfortably in bed, VSS, awaiting inpt bed
--- NOTE | 2022-10-01 07:16 | PC.NURSE ---
RN report given to C
[2022-10-01 07:45] LABS: Basophils Absolute Auto 0.1 X10*3/uL (0.0-0.2); Basophils Percent Auto 0.5 % (0-2); Eosinophils Percent Auto 0.1 % (0-4); Hematocrit 35.1 % (42.0-52.0); Imm Gran Abs Auto 0.13 X10*3/uL (0.00-0.03); Imm Gran Pct Auto 0.7 % (0.0-0.4); Lymphocytes Absolute Auto 2.6 X10*3/uL (1.2-4.9); Lymphocytes Percent Auto 12.8 % (20-40); MANUAL DIFF FLAG SCAN; Mean Corpuscular HGB Conc 34.2 g/dl (31.0-36.0); Mean Corpuscular Hemoglobin 31.4 pg (27.0-33.0); Mean Corpuscular Volume 91.9 fL (80.0-98.0); Mean Platelet Volume 10.4 fL (9.4-12.4); Monocytes Absolute Auto 1.5 X10*3/uL (0.1-1.2); Monocytes Percent Auto 7.6 % (2-11); Neutrophils Absolute Auto 15.6 x10*3/uL (2.0-8.3); Neutrophils Percent Auto 78.3 % (45-73); Platelet Count 307 X10*3/uL (160-400); Red Blood Count 3.82 X10*6/uL (4.60-5.80); Red Cell Distribution Width 13.1 % (11.0-16.0); SCAN SMEAR FLAG 1; White Blood Count 19.9 X10*3/uL (4.8-10.8)
[2022-10-01 08:04] LABS: Troponin-I High Sensitivity 49.2 ng/L (<3.5-35.0)
[2022-10-01 08:08] LABS: Blood Urea Nitrogen 16 mg/dL (9-16); Creatinine Clr Calc Pharmacy 123.4; Estimated Glomerular Filt Rate > 60; Glucose Random 89 mg/dL (60-115)
[2022-10-01 08:10] LABS: Procalcitonin 6.15 ng/mL
[2022-10-01 08:25] LABS: Anion Gap 15 (12-20); Calcium 7.3 mg/dL (8.4-10.2); Carbon Dioxide 18 mmol/L (22-29); Chloride 109 mmol/L (96-108); Potassium 4.1 mmol/L (3.3-5.1); Sodium 138 mmol/L (135-145)
--- NOTE | 2022-10-01 08:55 | PHA.MEDREC ---
Pharmacy Consult ? Medication Reconciliation Pharmacy has completed the medication reconciliation.
[2022-10-01] MEDS: 0.9 % Sodium Chloride Flush 3 ML SYRINGE IVFLUSH ×3 (09:01→21:05)
[2022-10-01] MEDS: Doxycycline Monohydrate 100 MG CAPSULE PO ×2 (09:01→21:04)
[2022-10-01] MEDS: Sertraline HCL 25 MG TABLET 75 MG PO (09:01)
--- NOTE | 2022-10-01 09:42 | MHC.CM.PN ---
Addendum entered by Nery Iverson 10/01/22 11:33: [facility] RETURNED CALL WITH [employer]ING, NOTIFIED. PATIENT IS REQUESTING A RESPITE STAY AT [facility] ON DC. CM SPOKE WITH CARE TEAM REGARDING THIS. A STEP DOWN REFERRAL FORM WILL NEED TO BE COMPLETED AND FAXED TO [phone]. SAVITA IN CARE TEAM AWARE. Addendum entered by Nery Iverson 10/01/22 10:27: CALL PLACED TO [facility] TO REQUEST [employer] DOSING. MESSAGE LEFT AND AWAITING RETURN CALL. Original Note: CM MET WITH PT AT BEDSIDE WITH 1:1 SITTER DUE TO SI. PT IS HOMELESS AND IS AGREEABLE TO A RESIDENTIAL OR RESPITE ON DC. INDEPENDENT AT BASELINE. NO HCP, DECLINES NO COVID VAX. NO PCP, CM WILL PROVIDE [facility] BROCHURE. WILL NEED TRANSPORT VIA LYFT VS SHUTTLE? CM WILL CONTINUE TO FOLLOW AND SEEK RESIDENTIAL SLOT FOR PT.
--- NOTE | 2022-10-01 10:47 | PM.EVENT ---
Event Note Date of Service: 10/01/22 Event Note: day hospitalist update S c/o cough, dyspnea O Temp Pulse Resp BP Pulse Ox O2 Del Method O2 Flow Rate 97.2 F 79 16 100/53 L 99 2 10/01/22 08:00 10/01/22 08:00 10/01/22 08:00 10/01/22 08:00 10/01/22 08:00 10/01/22 08:00 10/01/22 08:00 Gen: in no acute distress HEENT: sclera anicteric, moist mucus membranes Neck: supple Lungs: inspiratory crackles L side Heart: regular rate and rhythm, no murmurs Abd: soft, non-tender, non-distended Ext: no edema Skin: warm/well-perfused Neuro: alert and oriented x3, no focal findings Psych: appropriate affect Labs: PCT 6.15 A/P hospital d#1 21yo M with polysubstance abuse disorder presenting with dyspnea + fever, found to be septic + hypoxic from PNA # PNA - ceftriaxone + doxycycline + vancomycin 10/01- follow BCx, check Legionella + pneumococcal urine antigens, trend PCT, check RVP, check MRSA swab, check HIV status # acute hypoxic resp failure - wean O2 as tolerated # WADE, prerenal - resolved # polysubstance abuse - verify methadone dose, check HBV/HCV/HIV - Addiction Medicine consult # mood disorder - lamotrigine, hydroxyzine, clonidine, sertraline # SI - sitter, will need psych eval prior to d/c # VTE ppx: LMWH # dispo: eventual home In my clinical judgment, the patient requires continued inpatient hospitalization for the following reasons: IV ABX, hypoxia, SI Time Spent With Patient Time: Total time managing care of this patient today __35__ minutes.
[2022-10-01] MEDS: methADONE HCl 20 MG/2 ML ORAL.CONC 30 MG PO (12:32)
[2022-10-01] MEDS: vancomycin HCL 1,250 MG in 0.9 % Sodium Chloride 250 ML 166.67 MG IV (12:39)
--- NOTE | 2022-10-01 13:43 | MHC.CARE ---
Nery zafar/ GRACE infomed t/w of [phone] (Managers Ana or Arlin). Ana reports familiarity with patient. He is H involved and has a PACT team. Reports that once patient is medically cleared, fax them notes/ RN notes/ med clearance/ presenting problem. If accepted, Hospital can provide [facility] Per Nery Preston CM w [facility], patient may not be medically cleared for another 24-48 hours.
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
[2022-10-01] MEDS: lamoTRIgine 25 MG TABLET PO ×2 (15:10→21:04)
[2022-10-01] MEDS: hydrOXYzine HCL 25 MG TABLET PO ×2 (15:10→21:04)
--- NOTE | 2022-10-01 15:25 | HO.ADDICT_ITS ---
History of Present Illness Date of Service: 10/01/2022 Chief Complaint: Chest Pain Reason for Consult: substance use Sources of Information: patient interviewed and chart reviewed HPI Narrative: Patient is a 21 year old male know to this news writer via previous admission and [facility] evaluation. Currently medically admitted with pneumonia. Patient prescribed methadone 30mg QD via [facility] OTP, and reporting IV cocaine use Interview brief as patient is known to this news writer, and he was expressing discomfort with speaking. He appeared diaphoretic and tired. Patient reports that methadone dose was previously at 60mg QD, but he had requested to start tapering dose--at the same time, he began using more fentanyl and cocaine. He reports that he is living on the [address] at this time, and would like to increase methadone dose to 40mg while he is here. Past Psychiatric History: reportedly h/o DMH and CHD services/involvement. multiple psych hosps. no h/o SA or SIB prior to the present presentation. Review of Systems Constitutional: Reports as per HPI, Reports body ache(s), Reports fatigue and Reports malaise Endocrine: Reports fatigue Diagnostics Vital Signs (24Hr): Vital Signs - 24 hr 09/30/22 23:42 10/01/22 00:00 10/01/22 01:04 Temperature 98.1 F Pulse Rate 88 105 H Respiratory Rate 14 21 H Blood Pressure 112/56 L 117/44 L Pulse Oximetry 92 97 94 Oxygen Delivery Method Room Air Nasal Cannula Nasal Cannula Oxygen Flow Rate 2 2 10/01/22 01:46 10/01/22 01:26 10/01/22 02:21 Temperature Pulse Rate 92 92 90 Respiratory Rate 31 H 30 H Blood Pressure 109/50 L 90/37 L 101/40 L Pulse Oximetry 94 96 Oxygen Delivery Method Nasal Cannula Nasal Cannula Oxygen Flow Rate 2 2 10/01/22 02:10 10/01/22 02:58 10/01/22 03:10 Temperature 100.6 F H Pulse Rate 92 94 93 Respiratory Rate 28 H 30 H Blood Pressure 108/46 L 104/42 L 104/42 L Pulse Oximetry 95 93 Oxygen Delivery Method Nasal Cannula Nasal Cannula Oxygen Flow Rate 2 2 10/01/22 03:42 10/01/22 04:10 10/01/22 05:10 Temperature 98.6 F 99.9 F Pulse Rate 91 88 81 Respiratory Rate 24 H 20 20 Blood Pressure 105/37 L 94/41 L 95/33 L Pulse Oximetry 94 94 95 Oxygen Delivery Method Nasal Cannula Nasal Cannula Nasal Cannula Oxygen Flow Rate 2 2 2 10/01/22 05:55 10/01/22 05:26 10/01/22 05:42 Temperature 98.9 F 98.7 F 98.7 F Pulse Rate 80 90 82 Respiratory Rate 20 22 H 21 H Blood Pressure 91/40 L 101/33 L 99/42 L Pulse Oximetry 94 95 Oxygen Delivery Method Nasal Cannula Room Air Nasal Cannula Oxygen Flow Rate 2 2 10/01/22 07:19 10/01/22 08:00 10/01/22 11:51 Temperature 98.5 F 97.2 F 99.4 F Pulse Rate 79 79 63 Respiratory Rate 18 16 16 Blood Pressure 101/73 100/53 L 104/54 L Pulse Oximetry 97 99 95 Oxygen Delivery Method Room Air Nasal Cannula Nasal Cannula Oxygen Flow Rate 2 2 BMI result Body Mass Index 23.5 Labs 10/01/22 07:34 10/01/22 07:34 Labs: Laboratory Results - last 48 hr 10/01/22 10/01/22 10/01/22 00:19 00:19 00:19 WBC 19.1 H RBC 4.25 L Hgb 13.4 L Hct 38.4 L MCV 90.4 MCH 31.5 MCHC 34.9 RDW 12.9 Plt Count 372 MPV 10.2 Immature Gran % (Auto) 0.5 H Neut % (Auto) 86.0 H Lymph % (Auto) 5.3 L Will % (Auto) 7.9 Eos % (Auto) 0.0 Baso % (Auto) 0.3 Lymph # (Auto) 1.0 L Will # (Auto) 1.5 H Eos # (Auto) 0.0 Baso # (Auto) 0.1 Abs Immat Gran (auto) 0.09 H Absolute Neuts (auto) 16.5 H Absolute Nucleated RBC 0.000 Nucleated RBC % (auto) 0.0 Smear Tech's Comments VERIFIED PT 16.2 H INR 1.4 H APTT 34.9 Sodium 138 Potassium 4.9 Chloride 100 Carbon Dioxide 24 Anion Gap 19 BUN 26 H Creatinine 1.47 H Estim Creat Clear Calc 110.1 Estimated GFR 59 Random Glucose 107 Lactic Acid Calcium 9.0 Phosphorus 3.9 Magnesium 2.2 Total Bilirubin 0.6 AST 44 H ALT 21 Alkaline Phosphatase 68 Troponin I High Sens Total Protein 7.2 Albumin 4.4 Procalcitonin 6.15 Salicylates < 5.0 L Urine Opiates Screen Urine Fentanyl Screen Acetaminophen < 17 Ur Barbiturates Screen Ur Phencyclidine Scrn Ur Amphetamines Screen U Benzodiazepines Scrn Urine Cocaine Screen U Marijuana (THC) Screen Ethyl Alcohol < 10 COVID-19 ([facility]) COVID-19 Clin Com 10/01/22 10/01/22 10/01/22 00:19 00:19 01:01 WBC RBC Hgb Hct MCV MCH MCHC RDW Plt Count MPV Immature Gran % (Auto) Neut % (Auto) Lymph % (Auto) Will % (Auto) Eos % (Auto) Baso % (Auto) Lymph # (Auto) Will # (Auto) Eos # (Auto) Baso # (Auto) Abs Immat Gran (auto) Absolute Neuts (auto) Absolute Nucleated RBC Nucleated RBC % (auto) Smear Tech's Comments PT INR APTT Sodium Potassium Chloride Carbon Dioxide Anion Gap BUN Creatinine Estim Creat Clear Calc Estimated GFR Random Glucose Lactic Acid 1.6 Calcium Phosphorus Magnesium Total Bilirubin AST ALT Alkaline Phosphatase Troponin I High Sens 110.8 H* Total Protein Albumin Procalcitonin Salicylates Urine Opiates Screen Urine Fentanyl Screen Acetaminophen Ur Barbiturates Screen Ur Phencyclidine Scrn Ur Amphetamines Screen U Benzodiazepines Scrn Urine Cocaine Screen U Marijuana (THC) Screen Ethyl Alcohol COVID-19 ([facility]) Negative COVID-19 Clin Com See Note 10/01/22 10/01/22 10/01/22 02:57 03:05 07:34 WBC 19.9 H RBC 3.82 L Hgb 12.0 L Hct 35.1 L MCV 91.9 MCH 31.4 MCHC 34.2 RDW 13.1 Plt Count 307 MPV 10.4 Immature Gran % (Auto) 0.7 H Neut % (Auto) 78.3 H Lymph % (Auto) 12.8 L Will % (Auto) 7.6 Eos % (Auto) 0.1 Baso % (Auto) 0.5 Lymph # (Auto) 2.6 Will # (Auto) 1.5 H Eos # (Auto) 0.0 Baso # (Auto) 0.1 Abs Immat Gran (auto) 0.13 H Absolute Neuts (auto) 15.6 H Absolute Nucleated RBC 0.000 Nucleated RBC % (auto) 0.0 Smear Tech's Comments PT INR APTT Sodium Potassium Chloride Carbon Dioxide Anion Gap BUN Creatinine Estim Creat Clear Calc Estimated GFR Random Glucose Lactic Acid Calcium Phosphorus Magnesium Total Bilirubin AST ALT Alkaline Phosphatase Troponin I High Sens 71.3 H Total Protein Albumin Procalcitonin Salicylates Urine Opiates Screen POSITIVE H Urine Fentanyl Screen POSITIVE H Acetaminophen Ur Barbiturates Screen Not Detected Ur Phencyclidine Scrn Not Detected Ur Amphetamines Screen Not Detected U Benzodiazepines Scrn Not Detected Urine Cocaine Screen POSITIVE H U Marijuana (THC) Screen POSITIVE H Ethyl Alcohol COVID-19 ([facility]) COVID-19 [facility] Com 10/01/22 10/01/22 07:34 07:34 WBC RBC Hgb Hct MCV MCH MCHC RDW Plt Count MPV Immature Gran % (Auto) Neut % (Auto) Lymph % (Auto) Will % (Auto) Eos % (Auto) Baso % (Auto) Lymph # (Auto) Will # (Auto) Eos # (Auto) Baso # (Auto) Abs Immat Gran (auto) Absolute Neuts (auto) Absolute Nucleated RBC Nucleated RBC % (auto) Smear Tech's Comments PT INR APTT Sodium 138 Potassium 4.1 Chloride 109 H Carbon Dioxide 18 L Anion Gap 15 BUN 16 Creatinine 0.87 Estim Creat Clear Calc 123.4 Estimated GFR > 60 Random Glucose 89 Lactic Acid Calcium 7.3 L D Phosphorus Magnesium Total Bilirubin AST ALT Alkaline Phosphatase Troponin I High Sens 49.2 H Total Protein Albumin Procalcitonin Salicylates Urine Opiates Screen Urine Fentanyl Screen Acetaminophen Ur Barbiturates Screen Ur Phencyclidine Scrn Ur Amphetamines Screen U Benzodiazepines Scrn Urine Cocaine Screen U Marijuana (THC) Screen Ethyl Alcohol COVID-19 ([facility]) COVID-19 Clin Com Imaging Radiology Impressions: ITS Impressions Chest X-Ray 10/01/22 00:29 IMPRESSION: Left lower lobe pneumonia. Chest CT 10/01/22 03:45 IMPRESSION: Left lower lobe consolidation with air bronchograms. Additional areas of consolidation in the lingula, right middle lobe, and right lower lobe. This is concerning for multifocal pneumonia. Fleischner guidelines were followed. Mental Status Exam Mental Status Exam Patient Appearance: Fatigued and Perspiring Patient Orientation: Person, Place, Time and Situation Affect Description: Appropriate Medications Medications Current Medications Acetaminophen (Acetaminophen 325 Mg Tablet) 650 mg PO Q6H PRN PRN Reason: Pain, Mild (Pain Scale 1-3) Last Admin: 10/01/22 15:10 Dose: 650 mg Clonidine HCl (Clonidine Hcl 0.1 Mg Tablet) 0.1 mg PO BEDTIME PRN; Protocol PRN Reason: signs of opioid withdrawal Doxycycline Monohydrate (Doxycycline Monohydrate 100 Mg Capsule) 100 mg PO Q12H [facility] Last Admin: 10/01/22 09:01 Dose: 100 mg Enoxaparin Sodium (Enoxaparin Sodium 40 Mg/0.4 Ml Syringe) 40 mg SUBCUT Q24H [facility] Last Admin: 10/01/22 03:00 Dose: 40 mg Hydroxyzine HCl (Hydroxyzine Hcl 25 Mg Tablet) 25 mg PO TID [facility] Last Admin: 10/01/22 15:10 Dose: 25 mg Ceftriaxone Sodium 1 gm/ (Sodium Chloride) 50 mls @ 100 mls/hr IV Q24H [facility] Last Infusion: 10/01/22 06:43 Dose: Infused Vancomycin HCl 1,250 mg/ (Sodium Chloride) 250 mls @ 166.667 mls/hr IV Q12H [facility] Last Infusion: 10/01/22 14:56 Dose: Infused Lamotrigine (Lamotrigine 25 Mg Tablet) 25 mg PO TID [facility] Last Admin: 10/01/22 15:10 Dose: 25 mg Melatonin (Melatonin 3 Mg Tablet) 6 mg PO BEDTIME PRN PRN Reason: Insomnia Methadone HCl (Methadone Hcl 20 Mg/2 Ml Oral.Conc) 30 mg PO DAILY [facility] Last Admin: 10/01/22 12:32 Dose: 30 mg Nitroglycerin (Nitroglycerin 0.4 Mg Tab.Subl) 0.4 mg SUBLINGUAL Q5MX3 PRN PRN Reason: Chest Pain Olanzapine (Olanzapine 10 Mg Tablet) 10 mg PO DAILY [facility] Ondansetron HCl (Ondansetron Hcl 4 Mg/2 Ml Vial) 4 mg IVPUSH Q8H PRN PRN Reason: Nausea and Vomiting Pharmacy Consult (Consult Rx Perform Med Rec) 1 each MISCELLANE ONCE PRN PRN Reason: Consult order Pharmacy Consult (Consult Rx Vancomycin Dosing) 1 each MISCELLANE DAILY PRN PRN Reason: Consult order Sertraline HCl (Sertraline Hcl 25 Mg Tablet) 75 mg PO DAILY [facility] Last Admin: 10/01/22 09:01 Dose: 75 mg Sodium Chloride (0.9 % Sodium Chloride Flush 3 Ml Syringe) 3 ml IVFLUSH QSHIFT [facility] Last Admin: 10/01/22 15:16 Dose: 3 ml Allergies Allergies Allergy/AdvReac Type Severity Reaction Status Date / Time No Known Allergies Allergy Verified 05/20/22 20:54 Assessment & Plan Assessment & Plan (1) Opioid use disorder: Status: Acute Code(s): F11.90 - Opioid use, unspecified, uncomplicated Assessment and Plan: * methadone increase to 40mg tomorrow 10/02 * will continue to follow during this admission Total time managing care of this patient today _30___ minutes. PMFSH Past Medical History Medical History Cocaine abuse Depression Heroin abuse Social History Social History Household Members: Other Housing: Homeless Do you presently have visiting nurse or other home services: No Alcohol intake: never Patient Tobacco Use Status: Current everyday Tobacco user Tobacco use type: Cigarette Substance Use Type: Crack/Cocaine, Heroin and Marijuana service: No Current occupational status: unemployed Sexual orientation: Straight/Heterosexual
[2022-10-01 17:15] LABS: MRSA Nasal PCR NEGATIVE (Negative); SA Nasal PCR POSITIVE (Negative)
--- NOTE | 2022-10-01 19:10 | PM.EVENT ---
Event Note Date of Service: 10/01/22 Event Note: Got query that pressors were not added when maps were low during admission. Patient was resuscitated with 30 cc/kg at the time of admission. I was informed that even after 30 cc/kg resuscitation patient's MAP dropped although systolic blood pressure remained above 90 and his heart rate was within normal limits. Even mentation was normal. Patient looked dry even after 30 cc/kg resuscitation and hence was given more fluids before consulting ICU and before adding presses. Patient responded very well to additional fluid resuscitation with blood pressure 100/70 at 07:00. Low diastolic pressure which was earlier noted could have been due to heroin use as suggested by patient's UDS which was positive for fentanyl and opiates. Time Spent With Patient Time: Total time managing care of this patient today ____ minutes.
[2022-10-02] VITALS: BP 104/42; PULSE 76; RESP 18; TEMP 36.8; O2SAT 92
[2022-10-02] MEDS: vancomycin HCL 1,250 MG in 0.9 % Sodium Chloride 250 ML 166.67 MG IV ×3 (00:50→20:52)
[2022-10-02] MEDS: Enoxaparin Sodium 40 MG/0.4 ML SYRINGE SUBCUT (00:55)
[2022-10-02] MEDS: cefTRIAXone sodium 1 GM in 0.9 % Sodium Chloride 50 ML IV (05:59)
[2022-10-02 06:11] LABS: Hematocrit 33.6 % (42.0-52.0); Hemoglobin 11.8 g/dl (14.0-18.0); Mean Corpuscular HGB Conc 35.1 g/dl (31.0-36.0); Mean Corpuscular Hemoglobin 31.9 pg (27.0-33.0); Mean Corpuscular Volume 90.8 fL (80.0-98.0); Mean Platelet Volume 10.2 fL (9.4-12.4); Platelet Count 329 X10*3/uL (160-400); Red Cell Distribution Width 13.1 % (11.0-16.0); White Blood Count 13.4 X10*3/uL (4.8-10.8)
[2022-10-02 07:43] LABS: Alanine Aminotransferase 19 U/L (0-40); Alkaline Phosphatase 61 U/L (39-117); Anion Gap 12 (12-20); Aspartate Amino Transferase 27 U/L (5-37); Bilirubin Total 0.4 mg/dL (0.0-1.0); Blood Urea Nitrogen 8 mg/dL (9-16); Carbon Dioxide 24 mmol/L (22-29); Chloride 108 mmol/L (96-108); Creatinine Clr Calc Pharmacy 151.2; Estimated Glomerular Filt Rate > 60; Glucose Random 86 mg/dL (60-115); Potassium 3.9 mmol/L (3.3-5.1); Sodium 140 mmol/L (135-145); Total Protein 5.2 g/dL (6.5-8.0)
[2022-10-02 08:00] VITALS: BP 118/54; PULSE 73; RESP 16; TEMP 36.7; O2SAT 96
[2022-10-02 08:35] LABS: ~HepC Num1 0.07 S/CO (0.00-0.79); ~Hepatitis C Antibody Nonreactive (Nonreactive)
[2022-10-02 08:44] LABS: HBS Num1 29.51 mIU/mL (0-7.99); HBsAGNum1 0.29 S/CO (0.00-0.99); HIV AB/AG Nonreactive (Nonreactive); Hepatitis B Core Antibody Nonreactive (Nonreactive); Hepatitis B Surface Antigen Negative (Negative); ~Hepatitis B Surface Antibody REACTIVE (Nonreactive)
--- NOTE | 2022-10-02 09:03 | HO.PM.IMPN ---
Subjective Subjective Date of Service: 10/02/22 Interval History: c/o malaise, cough, dyspnea no fever denies SI Review of Systems Review of Systems: Yes all other systems are reviewed and are negative Physical Exam Vital Signs: Vital Signs: Last Vital Signs Temp 98.1 F 10/02/22 08:00 Pulse 73 10/02/22 08:00 Resp 16 10/02/22 08:00 BP 118/54 L 10/02/22 08:00 Pulse Ox 96 10/02/22 08:00 O2 Del Method 10/02/22 08:00 O2 Flow Rate 1 10/02/22 08:00 BMI result Body Mass Index 23.5 Gen: in no acute distress HEENT: sclera anicteric, moist mucus membranes Neck: supple Lungs: inspiratory crackles L side Heart: regular rate and rhythm, no murmurs Abd: soft, non-tender, non-distended Ext: no edema Skin: warm/well-perfused Neuro: alert and oriented x3, no focal findings Psych: appropriate affect Objective Data Active Medications Acetaminophen (Acetaminophen 325 Mg Tablet) 650 mg PO Q6H PRN PRN Reason: Pain, Mild (Pain Scale 1-3) Last Admin: 10/01/22 15:10 Dose: 650 mg Documented By: LIZZETH Clonidine HCl (Clonidine Hcl 0.1 Mg Tablet) 0.1 mg PO BEDTIME PRN; Protocol PRN Reason: signs of opioid withdrawal Doxycycline Monohydrate (Doxycycline Monohydrate 100 Mg Capsule) 100 mg PO Q12H [facility] Last Admin: 10/01/22 21:04 Dose: 100 mg Documented By: LIZZETH Enoxaparin Sodium (Enoxaparin Sodium 40 Mg/0.4 Ml Syringe) 40 mg SUBCUT Q24H [facility] Last Admin: 10/02/22 00:55 Dose: 40 mg Documented By: GAMALIEL Hydroxyzine HCl (Hydroxyzine Hcl 25 Mg Tablet) 25 mg PO TID [facility] Last Admin: 10/01/22 21:04 Dose: 25 mg Documented By: LIZZETH Ceftriaxone Sodium 1 gm/ (Sodium Chloride) 50 mls @ 100 mls/hr IV Q24H [facility] Last Infusion: 10/02/22 06:31 Dose: 0 mls/hr Documented By: GAMALIEL Vancomycin HCl 1,250 mg/ (Sodium Chloride) 250 mls @ 166.667 mls/hr IV Q12H [facility] Last Infusion: 10/02/22 02:22 Dose: 0 mls/hr Documented By: GAMALIEL Lamotrigine (Lamotrigine 25 Mg Tablet) 25 mg PO TID [facility] Last Admin: 10/01/22 21:04 Dose: 25 mg Documented By: LIZZETH Melatonin (Melatonin 3 Mg Tablet) 6 mg PO BEDTIME PRN PRN Reason: Insomnia Methadone HCl (Methadone Hcl 20 Mg/2 Ml Oral.Conc) 30 mg PO DAILY [facility] Last Admin: 10/01/22 12:32 Dose: 30 mg Documented By: LIZZETH Nitroglycerin (Nitroglycerin 0.4 Mg Tab.Subl) 0.4 mg SUBLINGUAL Q5MX3 PRN PRN Reason: Chest Pain Olanzapine (Olanzapine 10 Mg Tablet) 10 mg PO DAILY [facility] Ondansetron HCl (Ondansetron Hcl 4 Mg/2 Ml Vial) 4 mg IVPUSH Q8H PRN PRN Reason: Nausea and Vomiting Pharmacy Consult (Consult Rx Perform Med Rec) 1 each MISCELLANE ONCE PRN PRN Reason: Consult order Pharmacy Consult (Consult Rx Vancomycin Dosing) 1 each MISCELLANE DAILY PRN PRN Reason: Consult order Sertraline HCl (Sertraline Hcl 25 Mg Tablet) 75 mg PO DAILY [facility] Last Admin: 10/01/22 09:01 Dose: 75 mg Documented By: LIZZETH Sodium Chloride (0.9 % Sodium Chloride Flush 3 Ml Syringe) 3 ml IVFLUSH QSHIFT [facility] Last Admin: 10/01/22 21:05 Dose: 3 ml Documented By: LIZZETH Labs 10/02/22 05:52 10/02/22 05:52 Labs: Laboratory Results - last 24 hr 10/01/22 10/02/22 10/02/22 15:15 05:52 05:52 MCV 90.8 MCH 31.9 MCHC 35.1 RDW 13.1 Plt Count 329 MPV 10.2 Absolute Nucleated RBC 0.000 Nucleated RBC % (auto) 0.0 Anion Gap 12 Estim Creat Clear Calc 151.2 Estimated GFR > 60 Random Glucose 86 Calcium 8.0 L D Total Bilirubin 0.4 AST 27 ALT 19 Alkaline Phosphatase 61 Total Protein 5.2 L Albumin 3.0 L Nasal Screen MRSA (PCR) NEGATIVE Nasal S. aureus Screen POSITIVE A Nasal MRSA/S.aureus Interp SEE NOTE Hep Bs Antigen Hep Bs Antibody Hep B Core Total Ab Hepatitis C Ab (EIA) HIV 1&2 Ab/P24 Ag 4thGn 10/02/22 10/02/22 05:52 05:52 MCV MCH MCHC RDW Plt Count MPV Absolute Nucleated RBC Nucleated RBC % (auto) Anion Gap Estim Creat Clear Calc Estimated GFR Random Glucose Calcium Total Bilirubin AST ALT Alkaline Phosphatase Total Protein Albumin Nasal Screen MRSA (PCR) Nasal S. aureus Screen Nasal MRSA/S.aureus Interp Hep Bs Antigen Negative Hep Bs Antibody REACTIVE Hep B Core Total Ab Nonreactive Hepatitis C Ab (EIA) Nonreactive HIV 1&2 Ab/P24 Ag 4thGn Nonreactive Microbiology Microbiology Results: Microbiology 10/01/22 21:15 Gram Stain - Final Sputum - Expectorated 10/01/22 01:01 Blood Culture - Preliminary Blood - Venous No growth after 24 hours. 10/01/22 01:01 Blood Culture - Preliminary Blood - Venous No growth after 24 hours. Assessment and Plan (1) Pneumonia: Status: Acute [facility] hospital d#2 21yo M with polysubstance abuse disorder presenting with dyspnea + fever, found to be septic + hypoxic from PNA # PNA - ceftriaxone + doxycycline + vancomycin 10/01-, follow BCx, MRSA nasal swab positive, pending Legionella + pneumococcal urine antigens + RVP, HIV negative # acute hypoxic resp failure - wean O2 as tolerated # WADE, prerenal - resolved p IV fluid resuscitation # polysubstance abuse - verified methadone dose, HCV + HIV negative, HBV immune - Addiction Medicine consulted # mood disorder - lamotrigine, hydroxyzine, clonidine, sertraline - per psych does not need sitter # VTE ppx: LMWH # dispo: eventual home In my clinical judgment, the patient requires continued inpatient hospitalization for the following reasons: IV ABX, hypoxia Time Spent With Patient Time: Total time managing care of this patient today __35__ minutes. Quality Stroke Does the patient have a stroke diagnosis?: No VTE Prior VTE?: No VTE Risk Level:: Medical - moderate - high VTE Device Contraindication: Treatment Not Indicated VTE Drug Contraindication: N/A - Med Ordered
[2022-10-02] MEDS: lamoTRIgine 25 MG TABLET PO ×3 (11:20→20:52)
[2022-10-02] MEDS: methADONE HCl 20 MG/2 ML ORAL.CONC 30 MG PO (11:21)
[2022-10-02] MEDS: OLANZapine 10 MG TABLET PO (11:21)
[2022-10-02] MEDS: hydrOXYzine HCL 25 MG TABLET PO ×3 (11:21→20:52)
[2022-10-02] MEDS: Doxycycline Monohydrate 100 MG CAPSULE PO ×2 (11:21→20:52)
[2022-10-02] MEDS: 0.9 % Sodium Chloride Flush 3 ML SYRINGE IVFLUSH ×3 (11:22→20:52)
[2022-10-02 11:25] VITALS: BP 115/62; PULSE 63; RESP 14; TEMP 36.3; O2SAT 96
[2022-10-02] MEDS: Sertraline HCL 25 MG TABLET 75 MG PO (11:28)
[2022-10-02 12:15] LABS: Vancomycin Trough 6.6 mcg/mL (10.0-20.0)
--- NOTE | 2022-10-02 12:25 | HE.PHANOTE ---
RE: vanco Trough on 10/02 came back at 6.6mg/L; increased dose to 1250mg Q8H with predicted AUC 509mg/L, trough 12.8. Renal function improving. Next level to be drawn on 10/03/22 @1100
--- NOTE | 2022-10-02 12:51 | MHC.CM.PN ---
EMR REVIEWED PER MD ROUNDS, PT NOT MEDICALLY CLEARED FOR DC (IV ABT, HYPOXIA) CM WILL CONTINUE TO FOLLOW.
[2022-10-02 13:54] LABS: Adenovirus PCR Not Detected (Not Detect.); Bordetella parapertussis PCR Not Detected (Not Detect.); Bordetella pertussis PCR Not Detected (Not Detect.); Chlamydia pneumoniae PCR Not Detected (Not Detect.); Coronavirus 229E PCR Not Detected (Not Detect.); Coronavirus HKU1 PCR Not Detected (Not Detect.); Coronavirus NL63 PCR Not Detected (Not Detect.); Coronavirus OC43 PCR Not Detected (Not Detect.); Influenza A PCR Not Detected (Not Detect.); Influenza B PCR Not Detected (Not Detect.); SARS-CoV-2 PCR Not Detected (Not Detect.)
[2022-10-02 13:55] LABS: Human metapneumovirus PCR Not Detected (Not Detect.); Mycoplasma pneumoniae PCR Not Detected (Not Detect.); Parainfluenza 1 PCR Not Detected (Not Detect.); Parainfluenza 2 PCR Not Detected (Not Detect.); Parainfluenza 3 PCR Not Detected (Not Detect.); Parainfluenza 4 PCR Not Detected (Not Detect.); RSV PCR Not Detected (Not Detect.); Rhino/Enterovirus PCR Not Detected (Not Detect.)
[2022-10-02 15:16] VITALS: BP 102/50; PULSE 70; RESP 18; TEMP 37.2; O2SAT 97
--- NOTE | 2022-10-02 19:17 | PM.EVENT ---
Event Note Date of Service: 10/02/22 Event Note: Addiction follow up Attempted to meet with patient, sleeping soundly and woke very briefly to say he was very tired and needed to sleep. RN will check in over the weekend. Time Spent With Patient Time: Total time managing care of this patient today ____ minutes.
[2022-10-02 19:18] VITALS: BP 97/41; PULSE 60; RESP 18; TEMP 37; O2SAT 98
[2022-10-03] VITALS (8 sets, daily range): BP systolic 84–123; BP diastolic 37–57; PULSE 50–66; RESP 14–20; TEMP 36.6–37.6; O2SAT 91–95
[2022-10-03] MEDS: 0.9 % Sodium Chloride 1,000 ML 999 ML IV (00:01)
--- NOTE | 2022-10-03 00:05 | PC.NURSE ---
BP 84/37, HR 51. pt asymptomatic. Hospitalist notified. 1000cc bolus given. BP 114/57 & HR 70 after IV Fluids. Will continue to monitor
[2022-10-03] MEDS: cefTRIAXone sodium 1 GM in 0.9 % Sodium Chloride 50 ML IV (05:31)
[2022-10-03] MEDS: Enoxaparin Sodium 40 MG/0.4 ML SYRINGE SUBCUT (05:36)
[2022-10-03] MEDS: vancomycin HCL 1,250 MG in 0.9 % Sodium Chloride 250 ML 166.67 MG IV (06:08)
[2022-10-03 06:53] LABS: Anion Gap 12 (12-20); Blood Urea Nitrogen 8 mg/dL (9-16); Calcium 8.4 mg/dL (8.4-10.2); Carbon Dioxide 23 mmol/L (22-29); Chloride 113 mmol/L (96-108); Creatinine Clr Calc Pharmacy 145.1; Estimated Glomerular Filt Rate > 60; Glucose Random 84 mg/dL (60-115); Potassium 4.1 mmol/L (3.3-5.1); Sodium 144 mmol/L (135-145)
[2022-10-03 07:08] LABS: Procalcitonin 2.69 ng/mL
[2022-10-03] MEDS: OLANZapine 10 MG TABLET PO (08:32)
[2022-10-03] MEDS: 0.9 % Sodium Chloride Flush 3 ML SYRINGE IVFLUSH (08:32)
[2022-10-03] MEDS: hydrOXYzine HCL 25 MG TABLET PO ×3 (08:32→21:15)
[2022-10-03] MEDS: Doxycycline Monohydrate 100 MG CAPSULE PO ×2 (08:32→21:15)
[2022-10-03] MEDS: Sertraline HCL 25 MG TABLET 75 MG PO (08:33)
[2022-10-03] MEDS: lamoTRIgine 25 MG TABLET PO ×3 (08:33→21:15)
[2022-10-03] MEDS: methADONE HCl 20 MG/2 ML ORAL.CONC 40 MG PO (08:33)
--- NOTE | 2022-10-03 10:54 | P.PNIM_ITS ---
Subjective Subjective Date of Service: 10/03/22 Interval History: weaned off O2 BP low overnight to 84/37 denies dizziness/lightheadedness dyspnea/cough improved Review of Systems Review of Systems: Yes all other systems are reviewed and are negative Physical Exam Vital Signs: Vital Signs: Last Vital Signs Temp 99.6 F 10/03/22 07:11 Pulse 66 10/03/22 07:11 Resp 20 10/03/22 07:11 BP 123/57 L 10/03/22 07:11 Pulse Ox 94 10/03/22 07:11 O2 Del Method 10/03/22 07:11 O2 Flow Rate 2 10/02/22 11:25 BMI result Body Mass Index 23.5 Const: Other: Gen: in no acute distress HEENT: sclera anicteric, moist mucus membranes Neck: supple Lungs: inspiratory crackles L side Heart: regular rate and rhythm, no murmurs Abd: soft, non-tender, non-distended Ext: no edema Skin: warm/well-perfused Neuro: alert and oriented x3, no focal findings Psych: appropriate affect Objective Data Active Medications Acetaminophen (Acetaminophen 325 Mg Tablet) 650 mg PO Q6H PRN PRN Reason: Pain, Mild (Pain Scale 1-3) Last Admin: 10/01/22 15:10 Dose: 650 mg Documented By: LIZZETH Clonidine HCl (Clonidine Hcl 0.1 Mg Tablet) 0.1 mg PO BEDTIME PRN; Protocol PRN Reason: signs of opioid withdrawal Doxycycline Monohydrate (Doxycycline Monohydrate 100 Mg Capsule) 100 mg PO Q12H [facility] 234 BEDS AT THE [facility] Last Admin: 10/03/22 08:32 Dose: 100 mg Documented By: ARI Enoxaparin Sodium (Enoxaparin Sodium 40 Mg/0.4 Ml Syringe) 40 mg SUBCUT Q24H [facility] 234 BEDS AT THE [facility] Last Admin: 10/03/22 05:36 Dose: 40 mg Documented By: LIZZETH Hydroxyzine HCl (Hydroxyzine Hcl 25 Mg Tablet) 25 mg PO TID [facility]CLUDE 234 BEDS AT THE [facility] Last Admin: 10/03/22 08:32 Dose: 25 mg Documented By: ARI Ceftriaxone Sodium 1 gm/ (Sodium Chloride) 50 mls @ 100 mls/hr IV Q24H [facility]CLUDE 234 BEDS AT THE [facility] Last Infusion: 10/03/22 06:13 Dose: 0 mls/hr Documented By: HO.CTORRZ Vancomycin HCl 1,250 mg/ (Sodium Chloride) 250 mls @ 166.667 mls/hr IV Q8H [facility] INCLUDE 234 BEDS AT THE [facility] Last Infusion: 10/03/22 07:56 Dose: 0 mls/hr Documented By: ARI Sodium Chloride (Ns) 1,000 mls @ 100 mls/hr IVCONT .Q10H [facility]S INCLUDE 234 BEDS AT THE [facility] Lamotrigine (Lamotrigine 25 Mg Tablet) 25 mg PO TID [facility] 234 BEDS AT THE [facility] Last Admin: 10/03/22 08:33 Dose: 25 mg Documented By: ARI Melatonin (Melatonin 3 Mg Tablet) 6 mg PO BEDTIME PRN PRN Reason: Insomnia Methadone HCl (Methadone Hcl 20 Mg/2 Ml Oral.Conc) 40 mg PO DAILY [facility] 234 BEDS AT THE [facility] Last Admin: 10/03/22 08:33 Dose: 40 mg Documented By: ARI Nitroglycerin (Nitroglycerin 0.4 Mg Tab.Subl) 0.4 mg SUBLINGUAL Q5MX3 PRN PRN Reason: Chest Pain Olanzapine (Olanzapine 10 Mg Tablet) 10 mg PO DAILY [facility] 234 BEDS AT THE [facility] Last Admin: 10/03/22 08:32 Dose: 10 mg Documented By: ARI Ondansetron HCl (Ondansetron Hcl 4 Mg/2 Ml Vial) 4 mg IVPUSH Q8H PRN PRN Reason: Nausea and Vomiting Pharmacy Consult (Consult Rx Perform Med Rec) 1 each MISCELLANE ONCE PRN PRN Reason: Consult order Pharmacy Consult (Consult Rx Vancomycin Dosing) 1 each MISCELLANE DAILY PRN PRN Reason: Consult order Sertraline HCl (Sertraline Hcl 25 Mg Tablet) 75 mg PO DAILY [facility] 234 BEDS AT THE [facility] Last Admin: 10/03/22 08:33 Dose: 75 mg Documented By: ARI Sodium Chloride (0.9 % Sodium Chloride Flush 3 Ml Syringe) 3 ml IVFLUSH QSHIFT [facility]S [facility]CLUDE 234 BEDS AT THE [facility] Last Admin: 10/03/22 08:32 Dose: 3 ml Documented By: ARI Labs 10/02/22 05:52 10/03/22 06:08 Labs: Laboratory Results - last 24 hr 10/01/22 10/02/22 10/03/22 15:15 11:44 06:08 Anion Gap 12 Estim Creat Clear Calc 145.1 Estimated GFR > 60 Random Glucose 84 Calcium 8.4 Procalcitonin 2.69 Vancomycin Trough 6.6 L Respiratory Panel Brown See Note Adenovirus (Rapid PCR) Not Detected B.pert (TEM-PCR) Not Detected B.parapertussis DNA PCR Not Detected C. pneumoniae DNA (PCR) Not Detected Coronavirus OC43 (PCR) Not Detected Coronavirus HKU1 (PCR) Not Detected Coronavirus 229E (PCR) Not Detected Coronavirus NL63 (PCR) Not Detected Human Metapneumovir PCR Not Detected Influenza A (RT-PCR) Not Detected Influenza B (RT-PCR) Not Detected M. pneumoniae (PCR) Not Detected Parainfluenza 1 (PCR) Not Detected Parainfluenza 2 (PCR) Not Detected Parainfluenza 3 (PCR) Not Detected Parainfluenza 4 (PCR) Not Detected RSV (PCR) Not Detected Entero/Rhino (PCR) Not Detected SARS-CoV-2 RNA (RT-PCR) Not Detected Microbiology Microbiology Results: Microbiology 10/01/22 21:15 Gram Stain - Final Sputum - Expectorated Sputum Culture - Preliminary Culture in progress. 10/01/22 01:01 Blood Culture - Preliminary Blood - Venous No growth after 48 hours. 10/01/22 01:01 Blood Culture - Preliminary Blood - Venous No growth after 48 hours. Assessment and Plan (1) Pneumonia: Status: Acute Plan hospital d#3 21yo M with polysubstance abuse disorder presenting with dyspnea + fever, found to be septic + hypoxic from PNA # PNA - ceftriaxone + doxycycline + vancomycin 10/01-, follow BCx, MRSA nasal swab positive, HIV negative, pending: Legionella + pneumococcal urine antigens + RVP # hypotension - will give IV fluids # WADE, prerenal - resolved p IV fluid resuscitation # acute hypoxic resp failure - resolved # polysubstance abuse - verified methadone dose, HCV + HIV negative, HBV immune - Addiction Medicine consulted # mood disorder - lamotrigine, hydroxyzine, clonidine, sertraline - per psych does not need sitter # VTE ppx: LMWH # dispo: eventual home perhaps tomorrow on cefuroxime + doxycycline In my clinical judgment, the patient requires continued inpatient hospitaliza tion for the following reasons: IV ABX, hypotension Time Spent With Patient Time: Total time managing care of this patient today 35____ minutes. Quality Stroke Does the patient have a stroke diagnosis?: No VTE Prior VTE?: No VTE Risk Level:: Medical - moderate - high VTE Device Contraindication: Treatment Not Indicated VTE Drug Contraindication: N/A - Med Ordered
[2022-10-03 11:30] LABS: Vancomycin Trough 18.2 mcg/mL (10.0-20.0)
[2022-10-03] MEDS: 0.9 % Sodium Chloride 1,000 ML 100 ML IVCONT ×2 (11:34→21:18)
--- NOTE | 2022-10-03 11:44 | HE.PHANOTE ---
vancomcyin dosing Patient level increased from 6.6 to 18.2 after frequency increase. Renal function is stable. Will decrease dose to vancomycin 1000 mg Q8H. Next level 10/04 @ 1100. Madison Subramanian PharmD
--- NOTE | 2022-10-03 11:48 | MHC.RECOVRN ---
Attempted to meet with pt to follow up and provide support. Pt irritated with people coming in his room, requesting to sleep. Denies withdrawal symptoms at this time.
[2022-10-03] MEDS: vancomycin HCL 1,000 MG in 0.9 % Sodium Chloride 250 ML 270 MG IV ×2 (12:36→21:15)
[2022-10-04 00:04] VITALS: BP 113/57; PULSE 74; RESP 20; TEMP 36.4; O2SAT 95
[2022-10-04 03:17] VITALS: BP 109/73; PULSE 68; RESP 20; TEMP 36.9; O2SAT 95
[2022-10-04] MEDS: Enoxaparin Sodium 40 MG/0.4 ML SYRINGE SUBCUT (05:07)
[2022-10-04] MEDS: cefTRIAXone sodium 1 GM in 0.9 % Sodium Chloride 50 ML IV (05:12)
[2022-10-04] MEDS: vancomycin HCL 1,000 MG in 0.9 % Sodium Chloride 250 ML 270 MG IV (05:49)
[2022-10-04 06:46] LABS: Creatinine Clr Calc Pharmacy 151.2; Estimated Glomerular Filt Rate > 60
[2022-10-04 07:13] VITALS: BP 135/59; PULSE 63; RESP 18; TEMP 37.2; O2SAT 96
[2022-10-04] MEDS: methADONE HCl 20 MG/2 ML ORAL.CONC 40 MG PO (10:12)
[2022-10-04] MEDS: Doxycycline Monohydrate 100 MG CAPSULE PO ×2 (10:13→19:53)
[2022-10-04] MEDS: Sertraline HCL 25 MG TABLET 75 MG PO (10:13)
[2022-10-04] MEDS: hydrOXYzine HCL 25 MG TABLET PO ×3 (10:13→19:53)
[2022-10-04] MEDS: OLANZapine 10 MG TABLET PO (10:13)
[2022-10-04] MEDS: lamoTRIgine 25 MG TABLET PO ×3 (10:13→19:53)
[2022-10-04] MEDS: 0.9 % Sodium Chloride 1,000 ML 100 ML IVCONT (11:15)
[2022-10-04 11:34] VITALS: BP 118/57; PULSE 51; RESP 17; TEMP 36.8; O2SAT 92
[2022-10-04 11:36] LABS: Vancomycin Trough 15.8 mcg/mL (10.0-20.0)
--- NOTE | 2022-10-04 11:42 | HE.PHANOTE ---
Vancomycin Dosing Level 15.8 today. Renal function stable. Continue current regimen. Next level 10/05 @ 1100. Atif HartD
--- NOTE | 2022-10-04 12:23 | P.PNIM_ITS ---
Subjective Subjective Date of Service: 10/04/22 Interval History: No acute events overnight, no fevers, no chills, complaining of shortness of breath and cough, tolerating diet, no lightheadedness, no dizziness. Review of Systems Review of Systems: Yes all other systems are reviewed and are negative Physical Exam Vital Signs: Vital Signs: Last Vital Signs Temp 98.3 F 10/04/22 11:34 Pulse 51 10/04/22 11:34 Resp 17 10/04/22 11:34 BP 118/57 L 10/04/22 11:34 Pulse Ox 92 10/04/22 11:34 O2 Del Method 10/04/22 11:34 O2 Flow Rate 2 10/02/22 11:25 BMI result Body Mass Index 23.5 Const: Other: Gen: Awake alert x3 in no acute distress HEENT: sclera anicteric, moist mucus membranes Neck: supple Lungs: inspiratory crackles L side Heart: regular rate and rhythm, no murmurs Abd: soft, non-tender, non-distended Ext: no edema Skin: warm/well-perfused Neuro: Nonfocal Psych: appropriate affect Objective Data Active Medications Acetaminophen (Acetaminophen 325 Mg Tablet) 650 mg PO Q6H PRN PRN Reason: Pain, Mild (Pain Scale 1-3) Last Admin: 10/01/22 15:10 Dose: 650 mg Documented By: LIZZETH Clonidine HCl (Clonidine Hcl 0.1 Mg Tablet) 0.1 mg PO BEDTIME PRN; Protocol PRN Reason: signs of opioid withdrawal Doxycycline Monohydrate (Doxycycline Monohydrate 100 Mg Capsule) 100 mg PO Q12H [facility] Last Admin: 10/04/22 10:13 Dose: 100 mg Documented By: ARI Enoxaparin Sodium (Enoxaparin Sodium 40 Mg/0.4 Ml Syringe) 40 mg SUBCUT Q24H [facility] Last Admin: 10/04/22 05:07 Dose: 40 mg Documented By: LIZZETH Hydroxyzine HCl (Hydroxyzine Hcl 25 Mg Tablet) 25 mg PO TID [facility] Last Admin: 10/04/22 10:13 Dose: 25 mg Documented By: ARI Ceftriaxone Sodium 1 gm/ (Sodium Chloride) 50 mls @ 100 mls/hr IV Q24H [facility] Last Infusion: 10/04/22 05:52 Dose: 0 mls/hr Documented By: LIZZETH Sodium Chloride (Ns) 1,000 mls @ 100 mls/hr IVCONT .Q10H [facility] Last Admin: 10/04/22 11:15 Dose: 100 mls/hr Documented By: ARI Vancomycin HCl 1,000 mg/ (Sodium Chloride) 270 mls @ 270 mls/hr IV Q8H [facility] Last Infusion: 10/04/22 06:52 Dose: 0 mls/hr Documented By: LIZZETH Lamotrigine (Lamotrigine 25 Mg Tablet) 25 mg PO TID [facility] Last Admin: 10/04/22 10:13 Dose: 25 mg Documented By: ARI Melatonin (Melatonin 3 Mg Tablet) 6 mg PO BEDTIME PRN PRN Reason: Insomnia Methadone HCl (Methadone Hcl 20 Mg/2 Ml Oral.Conc) 40 mg PO DAILY [facility] Last Admin: 10/04/22 10:12 Dose: 40 mg Documented By: ARI Nitroglycerin (Nitroglycerin 0.4 Mg Tab.Subl) 0.4 mg SUBLINGUAL Q5MX3 PRN PRN Reason: Chest Pain Olanzapine (Olanzapine 10 Mg Tablet) 10 mg PO DAILY [facility] Last Admin: 10/04/22 10:13 Dose: 10 mg Documented By: ARI Ondansetron HCl (Ondansetron Hcl 4 Mg/2 Ml Vial) 4 mg IVPUSH Q8H PRN PRN Reason: Nausea and Vomiting Pharmacy Consult (Consult Rx Perform Med Rec) 1 each MISCELLANE ONCE PRN PRN Reason: Consult order Pharmacy Consult (Consult Rx Vancomycin Dosing) 1 each MISCELLANE DAILY PRN PRN Reason: Consult order Sertraline HCl (Sertraline Hcl 25 Mg Tablet) 75 mg PO DAILY [facility] Last Admin: 10/04/22 10:13 Dose: 75 mg Documented By: ARI Sodium Chloride (0.9 % Sodium Chloride Flush 3 Ml Syringe) 3 ml IVFLUSH QSHIFT [facility] Last Admin: 10/04/22 10:11 Dose: Not Given Documented By: ARI Non-Admin Reason: IV Running Labs 10/02/22 05:52 10/04/22 06:06 Labs: Laboratory Results - last 24 hr 10/04/22 10/04/22 06:06 11:00 Estim Creat Clear Calc 151.2 Estimated GFR > 60 Vancomycin Trough 15.8 Microbiology Microbiology Results: Microbiology 10/01/22 21:15 Gram Stain - Final Sputum - Expectorated Sputum Culture - Final Assessment and Plan (1) Pneumonia: Status: Acute Plan hospital d#3 21yo M with polysubstance abuse disorder presenting with dyspnea + fever, found to be septic + hypoxic from PNA # PNA - ceftriaxone + doxycycline + vancomycin 10/01-, BCx negative times 48 hours, MRSA nasal swab positive, HIV negative, respiratory viral panel negative, pending: Legionella + pneumococcal urine antigens Will DC IV vancomycin, follow CBC, if continue to improve possible discharge in hours. # hypotension resolved, on IV fluids blood pressure is stable, will DC IV fluids and follow BP. # WADE, prerenal - resolved p IV fluid resuscitation # acute hypoxic resp failure - resolved # polysubstance abuse - verified methadone dose, HCV + HIV negative, HBV immune - being followed by Addiction Medicine, will consult care team prior to discharge. # mood disorder - lamotrigine, hydroxyzine, clonidine, sertraline - per psych does not need sitter # VTE ppx: LMWH In my clinical judgment, patient requires continued inpatient hospitalization for the following reasons: IV ABX, hypotension Time Spent With Patient Time: Total time managing care of this patient today ____ minutes. Quality Stroke Does the patient have a stroke diagnosis?: No VTE Prior VTE?: No VTE Risk Level:: Medical - moderate - high VTE Device Contraindication: Treatment Not Indicated VTE Drug Contraindication: N/A - Med Ordered
[2022-10-04 15:28] VITALS: BP 116/48; PULSE 52; RESP 17; TEMP 36.4; O2SAT 93
[2022-10-04 19:32] VITALS: BP 111/54; PULSE 60; RESP 17; TEMP 37.1; O2SAT 95
[2022-10-04] MEDS: 0.9 % Sodium Chloride Flush 3 ML SYRINGE IVFLUSH (19:53)
[2022-10-05 05:51] VITALS: BP 113/56; PULSE 62; RESP 16; TEMP 36.5; O2SAT 96
[2022-10-05] MEDS: Enoxaparin Sodium 40 MG/0.4 ML SYRINGE SUBCUT (05:52)
[2022-10-05] MEDS: cefTRIAXone sodium 1 GM in 0.9 % Sodium Chloride 50 ML IV (05:52)
[2022-10-05 07:11] VITALS: BP 116/57; PULSE 59; RESP 16; TEMP 36.7; O2SAT 94
[2022-10-05 07:13] LABS: Hematocrit 40.1 % (42.0-52.0); Hemoglobin 13.7 g/dl (14.0-18.0); Mean Corpuscular HGB Conc 34.2 g/dl (31.0-36.0); Mean Corpuscular Hemoglobin 31.6 pg (27.0-33.0); Mean Corpuscular Volume 92.4 fL (80.0-98.0); Mean Platelet Volume 10.6 fL (9.4-12.4); Platelet Count 451 X10*3/uL (160-400); Red Blood Count 4.34 X10*6/uL (4.60-5.80); Red Cell Distribution Width 13.2 % (11.0-16.0); White Blood Count 10.8 X10*3/uL (4.8-10.8)
[2022-10-05 07:37] LABS: Anion Gap 14 (12-20); Blood Urea Nitrogen 13 mg/dL (9-16); Calcium 9.2 mg/dL (8.4-10.2); Carbon Dioxide 25 mmol/L (22-29); Chloride 105 mmol/L (96-108); Creatinine Clr Calc Pharmacy 129.4; Estimated Glomerular Filt Rate > 60; Glucose Random 114 mg/dL (60-115); Potassium 4.2 mmol/L (3.3-5.1); Sodium 140 mmol/L (135-145)
[2022-10-05] MEDS: OLANZapine 10 MG TABLET PO (09:00)
[2022-10-05] MEDS: Doxycycline Monohydrate 100 MG CAPSULE PO (09:01)
[2022-10-05] MEDS: hydrOXYzine HCL 25 MG TABLET PO ×2 (09:01→14:32)
[2022-10-05] MEDS: methADONE HCl 20 MG/2 ML ORAL.CONC 40 MG PO (09:01)
[2022-10-05] MEDS: Sertraline HCL 25 MG TABLET 75 MG PO (09:01)
[2022-10-05] MEDS: lamoTRIgine 25 MG TABLET PO ×2 (09:01→14:33)
[2022-10-05] MEDS: 0.9 % Sodium Chloride Flush 3 ML SYRINGE IVFLUSH (09:02)
[2022-10-05 11:08] VITALS: BP 119/58; PULSE 64; RESP 16; TEMP 36.4; O2SAT 95
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
[2022-10-06 22:24] LABS: Legionella Ag Urine Not Detected (Not Detected)
[2022-10-09 01:14] LABS: Strep Pneumo Ag urine Not Detected (Not Detected)
== END 2022-10-05 15:05 | DRG 720 ==
LOC: HO.ED 10-01 01:29 → HO.EDOVER 10-01 01:42 → HO.IMC 10-01 06:48
PROVIDERS: Family Medicine; Physician Assistant; Admitting Provider Student in an Organized Health Care Education/Training Program; Emergency Provider Emergency Medicine; Visit Provider Hospitalist
DX: A41.9 Sepsis, unspecified organism (principal); J96.01 Acute respiratory failure with hypoxia; N17.9 Acute kidney failure, unspecified; J18.9 Pneumonia, unspecified organism; I95.9 Hypotension, unspecified; R45.851 Suicidal ideations; F19.10 Other psychoactive substance abuse, uncomplicated; F32.9 Major depressive disorder, single episode, unspecified; B95.62 Methicillin resistant Staphylococcus aureus infection as the cause of diseases classified elsewhere; F11.20 Opioid dependence, uncomplicated; F17.210 Nicotine dependence, cigarettes, uncomplicated; Z71.6 Tobacco abuse counseling; Z20.822 Contact with and (suspected) exposure to COVID-19; Z59.02 Unsheltered homelessness; Z79.899 Other long term (current) drug therapy
CPT/HCPCS: 36415; 71046; 71250; 80048; 80053; 80143; 80179; 80202; 80307; 82077; 82565; 83605; 83735; 84100; 84145; 84484; 85025; 85027; 85610; 85730; 86704; 86706; 86803; 87040; 87070; 87205; 87340; 87389; 87449; 87633; 87635; 87640; 87641; 87899; 92950; 93005; 99285; J0696; J1200; J1650; J2543; J3370; J3371

== ENCOUNTER 2023-01-21 18:24 | Emergency (ER) | payer OTHER, SELFPAY ==
[2023-01-21 18:29] VITALS: BP 117/59; PULSE 91; O2SAT 100
[2023-01-21 18:44] VITALS: BP 116/46; PULSE 81; RESP 16; TEMP 36.9; O2SAT 98; BMI 30.1
--- NOTE | 2023-01-21 18:48 | PC.NURSE ---
clothes and belongings stored in decon with security.
--- NOTE | 2023-01-21 19:07 | PC.NURSE ---
assumed care of pt at 1900, pt a &ox4, vss, pt pending ED provider. no new orders at this time.
--- NOTE | 2023-01-21 19:54 | ED.GENADULT ---
HPI - General Adult General Chief complaint: Overdose Stated complaint: OVERDOSE Time Seen by Provider: 01/21/23 18:49 Source: patient Mode of arrival: ambulatory Limitations: no limitations History of Present Illness HPI narrative: 22 yold male presents to the Ed for accidental overdose over drugs. patient states he bought two bags of dope from drug dealer. patient states after first bag he did not get high so he took the second bag and he woke up and was informed he was given naracan. patient is not suicidal or homicdial Related Data Home Medications Medication Instructions Recorded Confirmed buprenorphine 8 mg-naloxone 2 mg 10 mg sublingual DAILY 01/21/23 01/21/23 sublingual film (Suboxone) clonidine HCl 0.1 mg tablet 0.1 mg PO BEDTIME 01/21/23 01/21/23 divalproex 500 mg tablet,delayed 500 mg PO DAILY 01/21/23 01/21/23 release hydroxyzine HCl 25 mg tablet 25 mg PO QID 01/21/23 01/21/23 lisdexamfetamine 30 mg capsule 30 mg PO DAILY 01/21/23 01/21/23 (Vyvanse) mirtazapine 15 mg tablet 15 mg PO BEDTIME 01/21/23 01/21/23 oxcarbazepine 300 mg tablet 300 mg PO BID 01/21/23 01/21/23 Allergies Allergy/AdvReac Type Severity Reaction Status Date / Time No Known Allergies Allergy Verified 01/21/23 18:44 Review of Systems Review of Systems: accidental overdose Yes all other systems are reviewed and are negative [facility] Past Medical History Medical History Cocaine abuse Depression Heroin abuse Social History Social History Household Members: Other Housing: Homeless Do you presently have visiting nurse or other home services: No Alcohol intake: never Patient Tobacco Use Status: Current everyday Tobacco user Tobacco use type: Cigarette Smoked in Last 30 Days: Yes Use of substances other than those prescribed or required for medical reasons: Yes Substance Use Type: Heroin Substance Use Frequency: Chronic Longstanding Advance Directives: No Advance Directives Information Provided: No service: No Current occupational status: unemployed Sexual orientation: Straight/Heterosexual Physical Exam ED Vital Signs: Vital Signs - 24 hr 01/21/23 18:44 01/21/23 20:00 01/21/23 22:38 Temperature 98.4 F 98.3 F 97.9 F Pulse Rate 81 97 52 Respiratory Rate 16 16 16 Blood Pressure 116/46 L 148/62 H 102/40 L Pulse Oximetry 98 98 97 Oxygen Delivery Method Room Air Room Air Room Air BMI result Body Mass Index 30.1 Const General: cooperative, healthy appearing, comfortable, no acute distress, well developed, alert, awake and Physically active Orientation/consciousness: oriented to person, oriented to place, oriented to time and patient oriented x3 HENMT Head: Yes normal to inspection, Yes No palpable skull fracture present, Yes normocephalic, Yes atraumatic and No abrasion Eyes General: appearance normal, both eyes and all related structures Neck Neck: Yes normal visual inspection, Yes full ROM, Yes no lymphadenopathy, Yes no meningeal signs, Yes trachea midline, Yes supple, No anterior neck swelling and No tender Chest Chest palpation & inspection: normal inspection of the chest and normal palpation of entire chest wall Resp Effort & Inspection: normal respiratory effort and able to speak in complete sentences Auscultation: clear to auscultation bilaterally Cardio Jugular venous distension: no JVD Heart sounds: S1 normal heart sound present and S2 normal heart sound present GI Inspection: Yes normal to inspection and No abdominal wall ecchymosis Palpation (GI): Soft to palpation, not firm, nontender, no guarding and not rigid General: No CVA tenderness and Yes no CVA tenderness Back/Spine/Pelvis Back: no CVA tenderness, No CVA tenderness and No back tenderness Skin General skin exam: no rashes or lesions noted and elasticity normal Neuro General: oriented to person, oriented to place, oriented to time, patient oriented x3, gait normal, tone normal, moves all extremities, Normal light touch and pain sensation, no meningeal signs, no focal motor deficits, CN's II-XI intact bilaterally and normal sensation to monofilament Extrem General: Yes normal to inspection and Yes full ROM Psych Appearance: grossly normal, well kempt and not disheveled Course Course Course Narrative: Patient does not want detox. Suit consult placed Medications Administered Discontinued Medications Generic Name Dose Route Start Last Admin Trade Name Freq PRN Reason Stop Dose Admin Naloxone HCl 4 mg 01/21/23 23:37 01/21/23 23:43 Naloxone Hcl Nasal Take Home 4 Mg [place] NOSTRILALT 01/21/23 23:38 4 mg ONCE ONE Administration Medical Decision Making Medical Decision Making MDM Narrative: 22 yold male with accidental overdose from dope. patient denies any Suicidal or homicidal ideation. patinet labs are normal. patient seen by care team network consultant. who gave patient outpatient referral programs when patient is willing for detox. He states presently patient is not suicidal/homicidal and refuses detox. Differential Diagnosis Differential Diagnoses: The differential diagnosis associated with the presentation includes (accidental overdose, SI, HI, substance drug use, ) Consult Healthcare Provider Management of the patient was discussed with: [employer] (Care team) Lab Data 01/21/23 21:10 01/21/23 21:10 Labs: Lab Results 01/21/23 01/21/23 01/21/23 Range/Units 21:10 21:10 21:10 WBC 10.2 (4.8-10.8) X10*3/uL RBC 4.59 L (4.60-5.80) X10*6/uL Hgb 14.3 (14.0-18.0) g/dl Hct 40.7 L (42.0-52.0) % MCV 88.7 (80.0-98.0) fL MCH 31.2 (27.0-33.0) pg MCHC 35.1 (31.0-36.0) g/dl RDW 13.1 (11.0-16.0) % Plt Count 319 D (160-400) X10*3/uL MPV 10.8 (9.4-12.4) fL Immature Gran % (Auto) 0.2 (0.0-0.4) % Neut % (Auto) 77.2 H (45-73) % Lymph % (Auto) 16.4 L (20-40) % [place] % (Auto) 5.5 (2-11) % Eos % (Auto) 0.4 (0-4) % Baso % (Auto) 0.3 (0-2) % Lymph # (Auto) 1.7 (1.2-4.9) X10*3/uL [place] # (Auto) 0.6 (0.1-1.2) X10*3/uL Eos # (Auto) 0.0 (0.0-0.4) X10*3/uL Baso # (Auto) 0.0 (0.0-0.2) X10*3/uL Abs Immat Gran (auto) 0.02 (0.00-0.03) X10*3/uL Absolute Neuts (auto) 7.8 (2.0-8.3) x10*3/uL Absolute Nucleated RBC 0.000 (0.0-0.012) X10*3/uL Nucleated RBC % (auto) 0.0 (0.0-0.2) /100WBC Sodium 141 (135-145) mmol/L Potassium 4.1 (3.3-5.1) mmol/L Chloride 107 (96-108) mmol/L Carbon Dioxide 27 (22-29) mmol/L Anion Gap 11 L (12-20) BUN 14 (9-16) mg/dL Creatinine 0.85 (0.5-1.4) mg/dL Estim Creat Clear Calc 123.1 Estimated GFR > 60 Random Glucose 112 (60-115) mg/dL Calcium 9.2 (8.4-10.2) mg/dL Total Bilirubin 0.3 (0.0-1.0) mg/dL AST 24 (5-37) U/L ALT 28 (0-40) U/L Alkaline Phosphatase 60 (39-117) U/L Total Protein 6.3 L (6.5-8.0) g/dL Albumin 3.9 (3.5-5.0) g/dL Valproic Acid (50.0-100.0) mcg/mL Ethyl Alcohol < 10 mg/dL COVID-19 ([facility]) Negative (Negative) COVID-19 Clin Com See Note 01/21/23 Range/Units 21:10 WBC (4.8-10.8) X10*3/uL RBC (4.60-5.80) X10*6/uL Hgb (14.0-18.0) g/dl Hct (42.0-52.0) % MCV (80.0-98.0) fL MCH (27.0-33.0) pg MCHC (31.0-36.0) g/dl RDW (11.0-16.0) % Plt Count (160-400) X10*3/uL MPV (9.4-12.4) fL Immature Gran % (Auto) (0.0-0.4) % Neut % (Auto) (45-73) % Lymph % (Auto) (20-40) % [place] % (Auto) (2-11) % Eos % (Auto) (0-4) % Baso % (Auto) (0-2) % Lymph # (Auto) (1.2-4.9) X10*3/uL [place] # (Auto) (0.1-1.2) X10*3/uL Eos # (Auto) (0.0-0.4) X10*3/uL Baso # (Auto) (0.0-0.2) X10*3/uL Abs Immat Gran (auto) (0.00-0.03) X10*3/uL Absolute Neuts (auto) (2.0-8.3) x10*3/uL Absolute Nucleated RBC (0.0-0.012) X10*3/uL Nucleated RBC % (auto) (0.0-0.2) /100WBC Sodium (135-145) mmol/L Potassium (3.3-5.1) mmol/L Chloride (96-108) mmol/L Carbon Dioxide (22-29) mmol/L Anion Gap (12-20) BUN (9-16) mg/dL Creatinine (0.5-1.4) mg/dL Estim Creat Clear Calc Estimated GFR Random Glucose (60-115) mg/dL Calcium (8.4-10.2) mg/dL Total Bilirubin (0.0-1.0) mg/dL AST (5-37) U/L ALT (0-40) U/L Alkaline Phosphatase (39-117) U/L Total Protein (6.5-8.0) g/dL Albumin (3.5-5.0) g/dL Valproic Acid < 12.5 L (50.0-100.0) mcg/mL Ethyl Alcohol mg/dL COVID-19 ([facility]) (Negative) COVID-19 Clin Com Discharge Plan Discharge Clinical Impression: Drug overdose, Substance abuse Patient Disposition: Home, Self-Care Instructions: Polysubstance Abuse (ED) Additional Instructions: Return to the ED immediatley for any suicidal, homicidal ideation, any physical complaints, or any other concerning symptoms. Contact detox programs from list you were given by care team network consultant. Please follow up with PCP. Prescriptions: No Action clonidine HCl 0.1 mg tablet 0.1 mg PO BEDTIME oxcarbazepine 300 mg tablet 300 mg PO BID divalproex 500 mg tablet,delayed release (DR/EC) 500 mg PO DAILY hydroxyzine HCl 25 mg tablet 25 mg PO QID mirtazapine 15 mg tablet 15 mg PO BEDTIME Vyvanse 30 mg capsule 30 mg PO DAILY buprenorphine-naloxone [Suboxone] 8-2 mg film 10 mg sublingual DAILY Interventions: ED Discharge Assessment Last Done: 01/21/23 23:51 Discharge Date/Time: 01/21/23 23:53 Print Language: [place]
[2023-01-21 20:00] VITALS: BP 148/62; PULSE 97; RESP 16; TEMP 36.8; O2SAT 98
--- NOTE | 2023-01-21 20:57 | PC.NURSE ---
pt overheard by PCT making vague SI statements, this RN talked with pt and he denies SI thoughts, reports history of SI but not current. denies SI attempt, reports accidental overdose while trying to get high. provider aware, pt looking to speak to AN[facility]EL[facility] provider.
[2023-01-21 21:15] LABS: MANUAL DIFF FLAG NO
[2023-01-21 21:18] LABS: Basophils Percent Auto 0.3 % (0-2); Eosinophils Percent Auto 0.4 % (0-4); Hematocrit 40.7 % (42.0-52.0); Hemoglobin 14.3 g/dl (14.0-18.0); Imm Gran Abs Auto 0.02 X10*3/uL (0.00-0.03); Imm Gran Pct Auto 0.2 % (0.0-0.4); Lymphocytes Absolute Auto 1.7 X10*3/uL (1.2-4.9); Lymphocytes Percent Auto 16.4 % (20-40); Mean Corpuscular HGB Conc 35.1 g/dl (31.0-36.0); Mean Corpuscular Hemoglobin 31.2 pg (27.0-33.0); Mean Corpuscular Volume 88.7 fL (80.0-98.0); Mean Platelet Volume 10.8 fL (9.4-12.4); Monocytes Absolute Auto 0.6 X10*3/uL (0.1-1.2); Monocytes Percent Auto 5.5 % (2-11); Neutrophils Absolute Auto 7.8 x10*3/uL (2.0-8.3); Neutrophils Percent Auto 77.2 % (45-73); Platelet Count 319 X10*3/uL (160-400); Red Blood Count 4.59 X10*6/uL (4.60-5.80); Red Cell Distribution Width 13.1 % (11.0-16.0); White Blood Count 10.2 X10*3/uL (4.8-10.8)
--- NOTE | 2023-01-21 21:26 | MHC.EDTECH ---
BLOOD DRAWN ,COVID SWAB COLLECTED AND SENT TO LAB .,PT HAD 2 SANDWICHES,RAVIN CRACKERS AND 2 CAN NETT[employer] AMENA FOR SNACK .
[2023-01-21 21:32] LABS: Alanine Aminotransferase 28 U/L (0-40); Albumin Level 3.9 g/dL (3.5-5.0); Alkaline Phosphatase 60 U/L (39-117); Anion Gap 11 (12-20); Aspartate Amino Transferase 24 U/L (5-37); Bilirubin Total 0.3 mg/dL (0.0-1.0); Blood Urea Nitrogen 14 mg/dL (9-16); Calcium 9.2 mg/dL (8.4-10.2); Carbon Dioxide 27 mmol/L (22-29); Chloride 107 mmol/L (96-108); Creatinine Clr Calc Pharmacy 123.1; Estimated Glomerular Filt Rate > 60; Ethanol < 10 mg/dL; Glucose Random 112 mg/dL (60-115); Potassium 4.1 mmol/L (3.3-5.1); Sodium 141 mmol/L (135-145); Total Protein 6.3 g/dL (6.5-8.0)
[2023-01-21 21:33] LABS: Valproate < 12.5 mcg/mL (50.0-100.0)
[2023-01-21 21:34] LABS: COVID-19 Test Negative (Negative); IDNOW Serial# 08D9AD1C
[2023-01-21 22:38] VITALS: BP 102/40; PULSE 52; RESP 16; TEMP 36.6; O2SAT 97
--- NOTE | 2023-01-21 23:11 | PC.NURSE ---
Took over care from MAURO Rincon, care team met with pt to discuss plan of care. Resource booklet given by care team. Please is to be discharge home with Narcan.
--- NOTE | 2023-01-21 23:21 | MHC.CARE ---
Pt was seen for a SUDE eval. He currently denies intentional overdose. He reports relapsing three days ago after a break up. Pt stated that he has no plans or intentions to end his life. Pt declined offer to meet with the [employer] in the morning. He reports that he is not ready to start drug treatment again right now.. He was offered [facility] services info and drug treatment info and was discharged.
[2023-01-21] MEDS: Naloxone HCl Nasal TAKE HOME 4 MG SPRAY NOSTRILALT (23:43)
--- NOTE | 2023-01-21 23:46 | PC.NURSE ---
Pt a&o, denies any sob or chest pain, Reviewed discharge instructions with pt, pt verbalized understanding, Narcan given at this charge a long with resource given by care team, Pt walk down to dcon to receive belonging.
[2023-01-21 23:50] VITALS: BP 120/52; PULSE 58; RESP 16; TEMP 36.5; O2SAT 97
== END 2023-01-21 23:53 | disposition home or self-care (01) ==
PROVIDERS: Physician Assistant; Emergency Provider Internal Medicine
DX: T40.1X1A Poisoning by heroin, accidental (unintentional), initial encounter (principal); Y92.410 Unspecified street and highway as the place of occurrence of the external cause; Z20.822 Contact with and (suspected) exposure to COVID-19; F14.10 Cocaine abuse, uncomplicated; F11.20 Opioid dependence, uncomplicated; F17.210 Nicotine dependence, cigarettes, uncomplicated
CPT/HCPCS: 36415; 80053; 80164; 80307; 85025; 87635; 99284

== ENCOUNTER 2023-02-08 12:14 | Emergency (ER) | payer OTHER, SELFPAY ==
[2023-02-08 12:25] VITALS: BP 117/60; BP 169/68; PULSE 110; PULSE 94; RESP 20; TEMP 36.9; O2SAT 94; O2SAT 96; BMI 25.5
--- NOTE | 2023-02-08 12:37 | ED_ITS ---
HPI - Overdose General Chief Complaint: Overdose Stated Complaint: FENTANYL OD,NARCAN BY BYSTANDER PER EMS Time Seen by Provider: 02/08/23 12:34 Source: patient, RN notes reviewed and old records reviewed Mode of arrival: ambulatory History of Present Illness HPI Narrative: 22-year-old male with a past medical history of substance abuse, mood disorder, presenting to the ED via EMS s/p accidental overdose. Patient admits to snorting heroin/fentanyl, was given 4 mg of intranasal Narcan by bystander per EMS with positive result. Patient also reports using THC. Denies other illicit substances or EtOH. Denies fall/injury or head trauma, neck/back pain, CP/SOB, SI/HI. Is not interested in detox at this time MD complaint: accidental overdose Onset (ago): minute(s) Related Data Home Medications Medication Instructions Recorded Confirmed buprenorphine 8 mg-naloxone 2 mg 10 mg sublingual DAILY 01/21/23 01/21/23 sublingual film (Suboxone) clonidine HCl 0.1 mg tablet 0.1 mg PO BEDTIME 01/21/23 01/21/23 divalproex 500 mg tablet,delayed 500 mg PO DAILY 01/21/23 01/21/23 release hydroxyzine HCl 25 mg tablet 25 mg PO QID 01/21/23 01/21/23 lisdexamfetamine 30 mg capsule 30 mg PO DAILY 01/21/23 01/21/23 (Vyvanse) mirtazapine 15 mg tablet 15 mg PO BEDTIME 01/21/23 01/21/23 oxcarbazepine 300 mg tablet 300 mg PO BID 01/21/23 01/21/23 Allergies Allergy/AdvReac Type Severity Reaction Status Date / Time No Known Allergies Allergy Verified 01/21/23 18:44 Review of Systems Review of Systems: Constitutional: No Fever, No Chills, No Fatigue, No Malaise ENT/Mouth: No Ear Pain, No Nasal Congestion,No sore throat, No Rhinorrhea, No Swallowing Difficulty Eyes: No Eye Pain, No Swelling, No Redness, No Vision Changes Cardiovascular: No Chest Pain, No SOB Respiratory: No Cough, No Sputum, No Dyspnea Gastrointestinal: No Nausea, No Vomiting, No Abdominal pain Musculoskeletal: No joint pain, No Myalgias, No Joint Swelling Skin: No Skin Lesions, No rash Neuro: No Weakness, No Numbness, No Loss of Consciousness, No Dizziness, No Headache Psych: No Anxiety/Panic, No Depression, No SI/HI/AH/VH, No Social Issues Yes all other systems are reviewed and are negative Constitutional: Constitutional: Reports as per [facility] Past Medical History Attestation statement: The following information was validated with the patient. Source: old records reviewed Medical History Cocaine abuse Depression Heroin abuse Mood disorder Opioid use disorder Polysubstance abuse Social History Social History Household Members: Other Housing: Homeless Do you presently have visiting nurse or other home services: No Alcohol intake: current Alcohol intake frequency: a few times a week Patient Tobacco Use Status: Current everyday Tobacco user Tobacco use type: Cigarette Smoked in Last 30 Days: No Use of substances other than those prescribed or required for medical reasons: Yes Substance Use Type: Crack/Cocaine, Heroin and Marijuana Substance Use Frequency: Daily Advance Directives: No Advance Directives Information Provided: No service: No Current occupational status: unemployed Sexual orientation: Straight/Heterosexual Physical Exam Vital Signs: Vital Signs: Last Vital Signs Temp 98.4 F 02/08/23 12:25 Pulse 94 02/08/23 12:25 Resp 20 02/08/23 12:25 BP 117/60 02/08/23 12:25 Pulse Ox 94 02/08/23 12:25 O2 Del Method Room Air 02/08/23 12:25 BMI result Body Mass Index 25.5 Const: Other: Disheveled, poor hygiene. Appears under the influence General: cooperative, no acute distress and alert Orientation/consciousness: patient oriented x3 Limitations: no limitations HEENT: Head: Yes normal to inspection, Yes atraumatic, No Mazariegos's sign and No raccoon eyes Ears: hearing grossly normal bilaterally General nose exam: Normal external nose present Face and sinus: Yes normal facial exam Eyes: General: appearance normal, both eyes and all related structures Pupils: Equal, round and reactive pupils present EOM: EOMs intact bilaterally Neck: Neck: Yes normal visual inspection and Yes no meningeal signs Resp: Effort & Inspection: normal respiratory effort and no respiratory distress Cardio: Rate: regular rate GI: Inspection: Yes normal to inspection Palpation (GI): Soft to palpation, nontender, no guarding and not rigid Back/Spine/Pelvis: Other: No midline cervical/thoracic/lumbar spinous tenderness/step-off or deformity Skin: Rashes: no rashes Wounds: no wounds Neuro: General: patient oriented x3, tone normal, moves all extremities, no meningeal signs and CN's II-XI intact bilaterally Cranial nerves: Yes CN's II-XII intact bilaterally and Yes Equal, round and reactive pupils present Extrem: General: Yes normal to inspection Psych: Thought content: suicidality and no homicidality Course Course Course Narrative: -patient's tox screen positive for opiates, fentanyl, cocaine, THC >1517--patient awake and alert, agitated, maintaining airway, ambulating with steady gait. SUDE eval completed, patient not interested in detox services. Safe for discharge home at this time Medications Administered Discontinued Medications Generic Name Dose Route Start Last Admin Trade Name Freq PRN Reason Stop Dose Admin Naloxone HCl 4 mg 02/08/23 12:38 02/08/23 15:31 Naloxone Hcl Nasal Take Home 4 Mg [place] NOSTRILALT 02/08/23 12:39 4 mg ONCE ONE Administration Medical Decision Making Medical Decision Making [facility] Narrative: 22-year-old male with a past medical history of substance abuse, mood disorder, presenting to the ED via EMS s/p accidental overdose. On exam vital signs stable, NAD, nontoxic appearing, disheveled, no evidence of trauma, appears under the influence, awake and alert this time. Concern for accidental overdose. Patient denies SI/HI. Low suspicion for fractures/ICH or infection Plan: Drug screen, SUDE eval Please refer to course for remaining clinical decision making, interpretation of labs/imaging results, and discussions with consultants and/or family members. Differential Diagnosis Differential Diagnoses: The differential diagnosis associated with the presentation includes As above Consult Healthcare Provider Management of the patient was discussed with: Behavioral Health Provider Lab Data [facility] Lab Attestation statement: I reviewed the patient's lab results. Labs: Lab Results 02/08/23 Range/Units 13:35 Urine Opiates Screen POSITIVE H (Not Detect) Urine Fentanyl Screen POSITIVE H (Not Detect) Ur Barbiturates Screen Not Detected (Not Detect) Ur Phencyclidine Scrn Not Detected (Not Detect) Ur Amphetamines Screen Not Detected (Not Detect) U Benzodiazepines Scrn Not Detected (Not Detect) Urine Cocaine Screen POSITIVE H (Not Detect) U Marijuana (THC) Screen POSITIVE H (Not Detect) Independent Historian Clinical information obtained from an independent historian. History obtained from or confirmed by: EMS External Record Review External record reviewed: Inpatient record, Office record, Outpatient record, Prior outpatient labs, Prior outpatient radiology, Primary care record and Outside ED record Tests considered The following testing was considered but not selected: As above Social Determinants Patient?s care significantly limited by Social Determinants of Health including: Low income, Alcoholism and drug addiction in family and Problems related to primary support group Discharge Plan Discharge Clinical Impression: Accidental drug overdose Patient Disposition: Home, Self-Care Instructions: Adult Overdose (ED) Additional Instructions: AVOID ALCOHOL AND DRUG USE THIS CAN KILL YOU Follow-up with your doctor Your being sent home with Narcan to go, use for potential overdose Prescriptions: No Action clonidine HCl 0.1 mg tablet 0.1 mg PO BEDTIME oxcarbazepine 300 mg tablet 300 mg PO BID divalproex 500 mg tablet,delayed release (DR/EC) 500 mg PO DAILY hydroxyzine HCl 25 mg tablet 25 mg PO QID mirtazapine 15 mg tablet 15 mg PO BEDTIME Vyvanse 30 mg capsule 30 mg PO DAILY buprenorphine-naloxone [Suboxone] 8-2 mg film 10 mg sublingual DAILY Referrals: [facility] [Provider Group] [facility] [Outside] Interventions: ED Discharge Assessment Last Done: 02/08/23 15:37 Discharge Date/Time: 02/08/23 15:38
--- NOTE | 2023-02-08 12:38 | PC.NURSE ---
patient a&ox3, pt admits to using fentanyl, pt states he was upset he was narcan again this week. cardiac nurse specialist applied pt sinus tahmina on monitor, vss, pt given gingerale with ok of provider, pt denies si/hi and refusing services for detox will continue to monitor
--- NOTE | 2023-02-08 13:36 | HO.SUDE ---
Met with pt in ED11 after consult placed to CARE Team for SUDE after pt presented after accidental overdose. Pt laying in bed, eyes closed, wakes to voice. Pt awakes frustrated and desires discharge. Pt able to somewhat engage, reports this is third overdose within a week. Pt had a relationship that has ended and has caused increased stress. Pt reports first recent overdose was after pt used 2 bags (IV), second overdose was after pt used one bag and then 1/2 hour later used another bag (IV), and today pt had used one bag (IN). Pt reports he was trying to use less in order to avoid overdose. Prior to one bag today, it had been three days since last use since pt had been in [place] and unable to obtain substances. Pt reports hx methadone, interested in restarting but not today. Pt not interested in ATS today, states I'll go when I'm ready. Pt declines other recovery supports/resources. Educated/discussed harm reduction. Encouraged to reach out to t/w if needed. Pt denies questions or concerns at this time. ED provider aware.
[2023-02-08 13:56] LABS: Amphetamine Screen Urine Not Detected (Not Detect); Barbiturates, Urine Not Detected (Not Detect); Benzodiazepines Screen Urine Not Detected (Not Detect); Cannabinoid Screen Urine POSITIVE (Not Detect); Cocaine Screen Urine POSITIVE (Not Detect); Fentanyl, urine POSITIVE (Not Detect); Opiate Screen Urine POSITIVE (Not Detect); Phencyclidine Screen Urine Not Detected (Not Detect)
[2023-02-08] MEDS: Naloxone HCl Nasal TAKE HOME 4 MG SPRAY NOSTRILALT (15:31)
== END 2023-02-08 15:38 | disposition home or self-care (01) ==
PROVIDERS: Physician Assistant; Emergency Provider Emergency Medicine
DX: T40.1X1A Poisoning by heroin, accidental (unintentional), initial encounter (principal); T40.411A Poisoning by fentanyl or fentanyl analogs, accidental (unintentional), initial encounter; F19.10 Other psychoactive substance abuse, uncomplicated; Y92.9 Unspecified place or not applicable; F11.20 Opioid dependence, uncomplicated; F17.210 Nicotine dependence, cigarettes, uncomplicated
CPT/HCPCS: 80307; 99284

== ENCOUNTER 2023-02-09 13:55 | Inpatient (IN) | payer OTHER, SELFPAY ==
[2023-02-09 14:16] VITALS: BMI 22.7
[2023-02-09 14:17] VITALS: BP 119/55; PULSE 51; RESP 16; TEMP 36.3; O2SAT 99
--- NOTE | 2023-02-09 14:54 | PC.NURSE ---
Admission skin assessment completed by Brayan Plunkett RN with this grant writer present. NO acute findings. NO contraband noted.
--- NOTE | 2023-02-09 17:45 | PC.ADMIT ---
Patient comes in on a CV from [facility] where he self presented for depression w/ SI/HI. Patient is CAOx4 and reports increased depression and recent relapse of heroin use. Patient denies any physical complaints and denies AVH. Patient is homeless and reports depression and a sense of hopelessness 2nd to not having stable living environment. Additionally, patient recently lost his grandmother who was his primary support and has felt as though he did not have adequate support system since.
[2023-02-09 18:00] VITALS: BP 123/84; PULSE 66; RESP 18; TEMP 36.3; O2SAT 99
[2023-02-10 09:12] VITALS: BP 129/71; PULSE 84; RESP 16; TEMP 36.1; O2SAT 97
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
[2023-02-10] MEDS: OXcarbazepine 150 MG TABLET PO (13:29)
[2023-02-10] MEDS: LORazepam 1 MG TABLET PO ×3 (13:29→21:43)
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
--- NOTE | 2023-02-10 14:07 | PC.NURSE ---
Pt signed 3 day notice, up on tuesday 01/16. , SW, UR aware
[2023-02-10 16:05] VITALS: BP 151/66; PULSE 74; TEMP 36.4
[2023-02-10] MEDS: Acetaminophen 325 MG TABLET 650 MG PO (18:17)
[2023-02-10 21:30] VITALS: BP 127/64; PULSE 63; TEMP 36.2
[2023-02-10] MEDS: traZODone HCL 50 MG TABLET PO (21:42)
[2023-02-10] MEDS: Divalproex Sodium ER 500 MG TAB.ER.24H PO (21:43)
[2023-02-10] MEDS: cloNIDine HCL 0.1 MG TABLET PO (21:44)
[2023-02-10] MEDS: Mirtazapine 15 MG TABLET PO (21:44)
[2023-02-11] MEDS: OXcarbazepine 300 MG TABLET PO (08:39)
[2023-02-11 08:40] VITALS: BP 115/56; PULSE 52; RESP 18; TEMP 36.1; O2SAT 98
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
[2023-02-11 17:05] VITALS: BP 117/58; PULSE 67; TEMP 36.3
[2023-02-11] MEDS: Mirtazapine 15 MG TABLET PO (20:37)
[2023-02-11] MEDS: Divalproex Sodium ER 500 MG TAB.ER.24H PO (20:37)
[2023-02-11] MEDS: cloNIDine HCL 0.1 MG TABLET PO (20:40)
[2023-02-11] MEDS: traZODone HCL 50 MG TABLET PO ×2 (20:43→22:33)
[2023-02-11] MEDS: hydrOXYzine HCL 25 MG TABLET PO (22:33)
[2023-02-12] MEDS: OXcarbazepine 300 MG TABLET PO ×2 (09:26→20:17)
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
[2023-02-12 11:34] VITALS: BP 111/67; PULSE 88; RESP 18; TEMP 36.3; O2SAT 99
[2023-02-12 20:10] VITALS: BP 111/60; PULSE 83; TEMP 36.7
[2023-02-12] MEDS: Divalproex Sodium ER 500 MG TAB.ER.24H PO (20:16)
[2023-02-12] MEDS: traZODone HCL 50 MG TABLET PO (20:16)
[2023-02-12] MEDS: cloNIDine HCL 0.1 MG TABLET PO (20:16)
[2023-02-12] MEDS: Mirtazapine 15 MG TABLET PO (20:17)
[2023-02-13 08:45] VITALS: BP 133/65; PULSE 61; RESP 18; TEMP 36.3; O2SAT 99
[2023-02-13] MEDS: OXcarbazepine 300 MG TABLET PO ×2 (08:45→20:25)
[2023-02-13 18:00] VITALS: RESP 16
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
[2023-02-13] MEDS: Divalproex Sodium ER 500 MG TAB.ER.24H PO (20:25)
[2023-02-13] MEDS: Mirtazapine 15 MG TABLET PO (20:25)
[2023-02-13] MEDS: traZODone HCL 50 MG TABLET PO (20:25)
[2023-02-13] MEDS: cloNIDine HCL 0.1 MG TABLET PO (20:26)
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
[2023-02-14 09:00] VITALS: BP 140/79; PULSE 90; RESP 18; TEMP 36.5; O2SAT 98
[2023-02-14] MEDS: OXcarbazepine 300 MG TABLET PO ×2 (09:08→20:00)
[2023-02-14 18:00] VITALS: BP 131/63; PULSE 66; RESP 16; TEMP 36.4; O2SAT 99
[2023-02-14] MEDS: Divalproex Sodium ER 500 MG TAB.ER.24H PO (20:00)
[2023-02-14] MEDS: cloNIDine HCL 0.1 MG TABLET PO (20:00)
[2023-02-15 08:24] VITALS: BP 116/72; PULSE 84; RESP 16; TEMP 36.3; O2SAT 96
[2023-02-15] MEDS: OXcarbazepine 300 MG TABLET PO (08:38)
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
== END 2023-02-15 14:12 | disposition home or self-care (01) | DRG 755 ==
PROVIDERS: Admitting Provider Psychiatry & Neurology Psychiatry; Visit Provider Psychiatry & Neurology Psychiatry
DX: F43.25 Adjustment disorder with mixed disturbance of emotions and conduct (principal); R45.851 Suicidal ideations; F10.10 Alcohol abuse, uncomplicated; F11.20 Opioid dependence, uncomplicated; F17.210 Nicotine dependence, cigarettes, uncomplicated; F14.10 Cocaine abuse, uncomplicated; Z71.6 Tobacco abuse counseling; Z79.899 Other long term (current) drug therapy

== ENCOUNTER → 2023-02-09 13:55 | Outpatient (BNV) | payer OTHER, SELFPAY | PROVIDERS: Admitting Provider Psychiatry & Neurology Psychiatry; Visit Provider Psychiatry & Neurology Psychiatry | DX: F43.25 Adjustment disorder with mixed disturbance of emotions and conduct (principal); F14.10 Cocaine abuse, uncomplicated; F11.90 Opioid use, unspecified, uncomplicated; F10.90 Alcohol use, unspecified, uncomplicated | CPT/HCPCS: 90792; 99231; 99232; 99238 ==

== ENCOUNTER 2023-03-13 17:05 | Emergency (ER) | payer OTHER, SELFPAY ==
--- NOTE | ~2023-03-13 | XR_ITS ---
EXAMINATION: XR CHEST CLINICAL INFORMATION: Overdose, wheezing, rule out pneumonia COMPARISON: 10/01/2022 TECHNIQUE: 2 views of the chest were obtained. FINDINGS: The lungs are clear with no focal consolidation. No evidence of pneumothorax, pulmonary edema, or pleural effusions. The cardiomediastinal silhouette is unremarkable. No acute osseous findings. XR/XR chest 2V IMPRESSION: No acute cardiopulmonary findings.
[2023-03-13 17:13] VITALS: BP 128/66; BP 140/84; PULSE 101; PULSE 109; RESP 16; TEMP 37.2; O2SAT 93; O2SAT 94; BMI 24.4
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
--- NOTE | 2023-03-13 17:48 | MHC.EDTECH ---
Brought patient a cup of ice water and a warm blanket.
[2023-03-13 18:00] VITALS: BP 129/56; PULSE 70; RESP 16; TEMP 36.6; O2SAT 97
--- NOTE | 2023-03-13 18:00 | ED_ITS ---
HPI - Overdose General Chief Complaint: Overdose Stated Complaint: OPIOID OVERDOSE Time Seen by Provider: 03/13/23 17:42 Source: patient and EMS Mode of arrival: EMS Limitations: no limitations History of Present Illness HPI Narrative: this is a 22-year-old male with a history of polysubstance who presents to the ER after a unintentional opiate overdose. Patient reports that he bought 1 bag of heroin and sniffed it. He was found by bystanders unresponsive. He received 2 rounds of Narcan prior to my arrival. on arrival patient is alert and oriented. He has no physical complaints. He denies SI, HI. He is currently living in a half-way. He drinks whiskey daily. He only occasionally uses heroin. MD complaint: accidental overdose Related Data Previous Rx's Medication Instructions Recorded clonidine HCl 0.1 mg tablet 0.1 mg PO BEDTIME 30 days #30 tabs 02/15/23 divalproex 500 mg tablet,extended 500 mg PO BEDTIME 30 days #30 tabs 02/15/23 release 24 hr hydroxyzine HCl 25 mg tablet 25 mg PO Q6H PRN Anxiety 30 days 02/15/23 #60 tabs mirtazapine 30 mg tablet 30 mg PO BEDTIME 30 days #30 tabs 02/15/23 oxcarbazepine 300 mg tablet 300 mg PO BID 30 days #60 tabs 02/15/23 Allergies Allergy/AdvReac Type Severity Reaction Status Date / Time No Known Allergies Allergy Verified 03/13/23 17:22 Review of Systems Review of Systems: Yes all other systems are reviewed and are negative Constitutional: Constitutional: Reports no additional constitutional complaints, Denies body ache(s), Denies chills, Denies fever(s), Denies headache(s) and Denies weakness Eyes: Eyes: Reports no additional eye complaints and Denies change in vision ENT: Reports system reviewed and no additional complaints, except as documented, Denies dizziness, Denies headache(s), Denies nasal congestion, Denies nasal discharge and Denies neck pain Cardiovascular: Cardiovascular: Reports no additional cardiovascular complaints, Denies chest pain, Denies leg edema and Denies dyspnea Respiratory: Respiratory: Reports no additional respiratory complaints, Denies cough and Denies dyspnea Gastrointestinal: Gastrointestinal: Reports no additional gastrointestinal complaints, Denies abdominal pain, Denies diarrhea, Denies nausea and Denies vomiting Genitourinary: Genitourinary: Denies urinary incontinence Musculoskeletal: Musculoskeletal: Reports no additional musculoskeletal complaints, Denies back pain, Denies arthralgias, Denies joint swelling, Denies neck pain, Denies numbness and Denies tingling Integumentary/Breasts: Skin/Breast: Reports system reviewed and no additional complaints, except as docu and Denies rash Neurologic: Reports system reviewed and no additional complaints, except as documented, Denies Abnormal speech present, Denies dizziness, Denies headache(s), Denies numbness, Denies tingling and Denies weakness Psychiatric: Psychiatric: Denies homicidal ideation and Denies suicidal ideation PMF Past Medical History Attestation statement: The following information was validated with the patient. Source: old records reviewed and nursing notes reviewed Medical History Alcohol use disorder Cocaine abuse Depression Heroin abuse Mood disorder Opioid use disorder Polysubstance (excluding opioids) dependence Polysubstance abuse Social History Social History Household Members: None Housing: Homeless Do you presently have visiting nurse or other home services: No Alcohol intake: current Alcohol intake frequency: 0-2 drinks per day Alcohol type: hard liquor Patient Tobacco Use Status: Current everyday Tobacco user Tobacco use type: Cigarette Cigarette Packs Per Day: 1 Cigarettes Per Day: 20.0 Smoked in Last 30 Days: Yes e-Cigarette/Vaping Use: Former Use Second Hand Smoke Exposure: No Use of substances other than those prescribed or required for medical reasons: Yes Substance Use Type: Heroin Substance Use Frequency: Occasionally Advance Directives: No Advance Directives Information Provided: No service: No Current occupational status: unemployed Sexual orientation: Straight/Heterosexual Physical Exam Vital Signs: Vital Signs: Last Vital Signs Temp 97.9 F 03/13/23 19:57 Pulse 74 03/13/23 19:57 Resp 16 03/13/23 19:57 BP 135/60 03/13/23 19:57 Pulse Ox 96 03/13/23 19:57 O2 Del Method Room Air 03/13/23 19:57 BMI result Body Mass Index 24.4 Const: General: cooperative, healthy appearing, comfortable and no acute distress Orientation/consciousness: patient oriented x3 Limitations: no limitations HEENT: Head: Yes normal to inspection Ears: hearing grossly normal bilaterally General nose exam: Normal external nose present Face and sinus: Yes normal facial exam Mouth: Normal oral and palatal mucosa present Throat: Yes posterior oropharynx normal Eyes: General: appearance normal, both eyes and all related structures Pupils: Equal, round and reactive pupils present Neck: Neck: Yes normal visual inspection Chest: Chest palpation & inspection: normal inspection of the chest Resp: Other: Mild wheezing right-side Effort & Inspection: normal respiratory effort Cardio: Rate: regular rate Rhythm: regular rhythm Peripheral pulses: Peripheral pulses 2+ throughout GI: Inspection: Yes normal to inspection Palpation (GI): Soft to palpation and nontender Auscultation: normal bowel sounds Back/Spine/Pelvis: Thoracic/Lumbar Spine: thoracic and lumbar spine normal to inspection Skin: General skin exam: no rashes or lesions noted Neuro: General: patient oriented x3, no focal motor deficits and normal sensation to monofilament Cranial nerves: Yes Equal, round and reactive pupils present Cognition (Neuro): normal cognition Speech: No Abnormal speech present Gait exam (Neuro): Normal gait present Motor exam (neuro): 5/5 motor strength present throughout Extrem: General: Yes normal to inspection, Yes no pedal edema and Yes no calf tenderness Course Course Course Narrative: patient with the care team. His x-ray show no acute finding. He is clinically sober. He is ambulatory with a steady gait. Is tolerating p.o. with no difficulty. He will be sent home with to go Narcan. Reviewed worrisome signs and symptoms of when to return to the emergency room. Comfortable plan for discharge home. Medications Administered Discontinued Medications Generic Name Dose Route Start Last Admin Trade Name Leonel PRN Reason Stop Dose Admin Naloxone HCl 8 mg 03/13/23 21:38 03/13/23 22:17 Naloxone Hcl Nasal Take Home 4 Mg [place] NOSTRILALT 03/13/23 21:39 8 mg ONCE ONE Administration Medical Decision Making Medical Decision Making MDM Narrative: 22-year-old male with a history of polysubstance abuse presents to the ER after an accidental overdose on heroin requiring 2 rounds of Narcan prior to arrival. On arrival patient is alert and oriented. He has no physical complaints. Denies SI or HI. He is interested in speaking to tissue recovery technician about his alcohol use. On exam patient has wheezing on the right side. His vitals are stable. His exam is otherwise benign. I will check a chest x-ray Order care team evaluation for tissue recovery technician irma Differential Diagnosis Differential Diagnoses: The differential diagnosis associated with the p resentation includes Polysubstance use, overdose Consult Healthcare Provider Management of the patient was discussed with: Cost Coordinator The patient met with care team- he was given detox resources and they tell me the tissue recovery technician will follow-up with him outpatient. Independent Interpretation I performed an independent interpretation of an: Plain X-Ray Interpretation: I reviewed the x-ray and agree with the radiology report Radiology Impression Discussion of test interpretation with radiology: I have reviewed the radio logist's reading. Radiologist Impression: [id number] [place] [address] XRay Report Signed Patient: Juan Francisco Martinez MR#: [id number] : 2000 Acct:[id number] Age/Sex: 22 / M ADM Date: 03/13/23 Loc: .ED Attending Dr: Ordering Physician: Reina Cramer NP Date of Service: 03/13/23 Procedure(s): XR chest 2V Accession Number(s): [id number] cc: Reina Cramer NP~ EXAMINATION: XR CHEST CLINICAL INFORMATION: Overdose, wheezing, rule out pneumonia COMPARISON: 10/01/2022 TECHNIQUE: 2 views of the chest were obtained. FINDINGS: The lungs are clear with no focal consolidation. No evidence of pneumothorax, pulmonary edema, or pleural effusions. The cardiomediastinal silhouette is unremarkable. No acute osseous findings. XR/XR chest 2V IMPRESSION: No acute cardiopulmonary findings. ? Independent Historian Clinical information obtained from an independent historian. History obtained from or confirmed by: EMS clinical information was obtained from EMS Discharge Plan Discharge Clinical Impression: Drug overdose Patient Disposition: Home, Self-Care Instructions: Adult Overdose (ED) Additional Instructions: The recovery coaches will reach out to you Your x-ray looks normal Prescriptions: No Action clonidine HCl 0.1 mg Tablet 0.1 mg PO BEDTIME 30 Days Qty: 30 1RF Protocol: Hold for SBP< HOLD for SBP < : 90 divalproex 500 mg Tablet Extended Release 24 Hr 500 mg PO BEDTIME 30 Days Qty: 30 1RF hydroxyzine HCl 25 mg Tablet 25 mg PO Q6H PRN (Reason: Anxiety) 30 Days Qty: 60 1RF mirtazapine 30 mg tablet 30 mg PO BEDTIME 30 Days Qty: 30 1RF oxcarbazepine 300 mg Tablet 300 mg PO BID 30 Days Qty: 60 1RF Referrals: Physician,Unknown J [Primary Care Provider] - 5 days Interventions: ED Discharge Assessment Last Done: 03/13/23 22:24 Discharge Date/Time: 03/13/23 22:24
--- NOTE | 2023-03-13 18:31 | MHC.CARE ---
CARE Team was asked to speak to the pt about detox options as there is no recovery team here vero. T/W gave the booklet handout and a card with safe practices on it to the pt. T/W spoke about safe using with the pt. T/W asked if he would like the recovery team to call him in the morning and he stated that he does not have a phone and that he is staying in a [facility]. Pt stated that is keeps overdosing because of the crap they are putting into the dope . He stated that he has never intentionally overdosed, that it keeps happening on accident. Pt stated that he snorted one bag of heroin and it put him in the hospital. T/W reiterated that he should not use alone and always have narcan near by. The ED provider stated that she would give the pt some narcan to go home with.
[2023-03-13 19:57] VITALS: BP 135/60; PULSE 74; RESP 16; TEMP 36.6; O2SAT 96
[2023-03-13] MEDS: Naloxone HCl Nasal TAKE HOME 4 MG SPRAY 8 MG NOSTRILALT (22:17)
--- NOTE | 2023-03-13 22:20 | PC.NURSE ---
this rn assumed care of pt from 6h to 22h pt agitated though redirectable. pt given take home narcan. this rn walked pt to decon to claim belongings. security provided pt with bus pass. pt ambulatory at discharge. pt provided with discharge packet. pt verbalized understanding of discharge plan
== END 2023-03-13 22:24 | disposition home or self-care (01) ==
PROVIDERS: Emergency Provider Emergency Medicine Emergency Medical Services
DX: T40.1X1A Poisoning by heroin, accidental (unintentional), initial encounter (principal); R40.4 Transient alteration of awareness; F19.20 Other psychoactive substance dependence, uncomplicated; Y92.9 Unspecified place or not applicable; F17.210 Nicotine dependence, cigarettes, uncomplicated
CPT/HCPCS: 71046; 99285